=== PATIENT | female | born 1965 | race Caucasian/White ===

== ENCOUNTER 2020-01-06 07:09 | Outpatient (CLI) | payer BC, SELFPAY ==
[2020-01-07 14:22] LABS: SARS-CoV-2 RNA PCR Negative
== END 2020-01-06 07:10 | disposition home or self-care (01) ==
PROVIDERS: PCP Family Medicine
DX: Z20.828 Contact with and (suspected) exposure to other viral communicable diseases (principal)
CPT/HCPCS: 87635; C9803; U0003

== ENCOUNTER 2020-09-08 09:42 | Outpatient (CLI) | payer BC, SELFPAY | END 2020-09-08 09:43 | disposition home or self-care (01) | LOC: CHSOUTPT 09:45 | PROVIDERS: PCP Family Medicine; Visit Provider Specialist | DX: Z71.3 Dietary counseling and surveillance (principal) | CPT/HCPCS: 99199 ==

== ENCOUNTER 2021-12-13 15:12 | Outpatient (CLI) | payer BC, SELFPAY ==
--- NOTE | ~2021-12-13 | CT_ITS ---
EXAMINATION: CT abdomen pelvis w con DATE: 12/13/2021 16:13 INDICATION: Generalized abdominal pain TECHNIQUE: Computed tomography (CT) of the abdomen and pelvis was performed with 100 cc Omnipaque 350 intravenous contrast. The dose-length product was 485.46 mGy-cm. Automated exposure control and iter ative reconstruction technique were employed. COMPARISON: None. FINDINGS: Lung bases are unremarkable. No significant pleural or pericardial effusion. Heart size nor mal. Status post cholecystectomy. Fatty infiltration of the liver. The spleen, pancreas, adrenal glands an d left kidney are unremarkable. There are right renal cysts. The left kidney is unremarkable. There i s mild stranding of the pericolonic fat at the proximal sigmoid colon with small fat-containing lesio n with inflammatory halo, consistent with epiploic appendagitis. No significant vascular abnormality. No lymphadenopathy. No free air or free fluid. There is a fat-containing umbilical hernia. No bowel obstruction. There is a heterogeneously enhancing mass of the uterine fundus, consistent with a fibro id measuring approximately 4 cm. No acute osseous abnormality.. IMPRESSION: 1. Findings compatible with epiploic appendagitis. 2: Hepatic steatosis. 3: Fibroid uterus. Reviewed, dictated and finalized at location A.
[2021-12-13 15:33] LABS: Basophils Absolute Auto 0.05 K/mm3 (0.00-0.10); Basophils Percent Auto 0.9 % (0.0-1.0); Eosinophils Absolute Auto 0.21 K/mm3 (0.02-0.50); Eosinophils Percent Auto 3.7 % (1.0-6.0); Hematocrit 41.8 % (35.0-49.0); Hemoglobin 13.9 g/dL (12.0-15.0); Immature Granulocyte Absolute 0.01 K/mm3 (0.00-0.00); Immature Granulocyte Percent A 0.2 % (0.0-0.0); Lymphocytes Absolute Auto 2.17 K/mm3 (1.10-4.50); Lymphocytes Percent Auto 38.6 % (18.0-42.0); Mean Corpuscular HGB Conc 33.3 g/dL (32.0-36.0); Mean Corpuscular Hemoglobin 28.8 pg (27.0-31.0); Mean Corpuscular Volume 86.7 fL (78.0-102.0); Mean Platelet Volume 9.1 fl (9.2-11.8); Monocytes Absolute Auto 0.37 K/mm3 (0.10-0.90); Monocytes Percent Auto 6.6 % (2.0-11.0); Neutrophils Absolute Auto 2.8 K/mm3 (1.7-7.2); Platelet Count Result 307 K/mm3 (150-420); Red Blood Count 4.82 M/mm3 (4.20-5.40); Red Cell Distribution Width 12.2 % (11.6-14.4); White Blood Count 5.6 K/mm3 (4.8-10.8)
[2021-12-13 15:34] LABS: Add Urine Microscopic? NO; Appearance Urine Clear (Clear); Bilirubin Urine Negative (Negative); Blood Urine Negative (Negative); Color Urine Light Yellow (Yellow); Glucose Urine UA Negative (Negative); Ketones Urine Negative (Negative); Leukocyte Esterase Ur Negative (Negative); Nitrate Urine Negative (Negative); Protein Urine Negative (Negative); Specific Grav Ur <= 1.005 (1.010-1.020); Urobilinogen Urine 0.2 mg/dL (0.2-1.0)
[2021-12-13 15:47] LABS: Alanine Aminotransferase 20 U/L (14-59); Albumin Level 3.4 g/dL (3.4-5.0); Alkaline Phosphatase 71 U/L (46-116); Anion Gap 9 mmol/L (8-16); Aspartate Amino Transferase 12 U/L (15-37); Bilirubin,Total 0.4 mg/dL (0.00-1.00); Blood Urea Nitrogen 11 mg/dL (7-18); Calcium 9.1 mg/dL (8.5-10.1); Carbon Dioxide 28 mmol/L (21-32); Chloride 105 mmol/L (98-108); Estimated Glomerular Filt Rate > 60; Glucose 99 mg/dL (70-99); Osmolality Calculated 293 mOsm/kg (285-295); Potassium 3.9 mmol/L (3.5-5.1); Sodium 142 mmol/L (136-145); Total Protein 7.5 g/dL (6.4-8.2)
== END 2021-12-13 15:13 | disposition home or self-care (01) ==
PROVIDERS: PCP Family Medicine; Visit Provider Registered Nurse
DX: R10.84 Generalized abdominal pain (principal)
CPT/HCPCS: 36415; 74177; 80053; 81003; 85025; Q9967

== ENCOUNTER 2024-04-01 17:01 | Outpatient (RCR) | payer BC, SELFPAY ==
--- NOTE | 2024-04-01 18:02 | PTOPEVAL1 ---
Assessment and note entered by Crow Larsen Evaluation Information Assessment Status Evaluation Diagnosis TMJ S03.00XA Onset 04/01/22 Subjective Information Pt. reports that she has been having jaw pain and pain around the right ear for about 2 years. She states that she has undergone MRI without any significant findings. She states that she has attempted to sleep with a mouth guard, without relief. She states that recently she has noticed that she is biting her cheek and tongue more frequently. She states that mostly occurs during eating and it has become a daily occurrence. She reports that she does not make a conscious effort to correct until after she has bitten her tongue or cheek. She states that her goal is to eliminate biting her tongue with eating. Reported Pain Level Pain Score 0: Self Report Assessment PT Clinical Summary Pt. enters the clinic with right sided TMJ dysfunction. She presents with impaired tracking during mouth opening and closing and pain with eating. Continued skilled PT is indicated in order to decrease pain and improve jaw tracking to allow for pain relief. Plan of Care Interventions Electrical Stimulation,Hot Pack/Cold Pack,Neuro Re -education,Patient/Caregiver Educati,Therapeutic Activities,Therapeutic Exercise Other Interventions dry needlilng PT Services Indicated Yes Treatment Frequency and 1x/week x 4 visits Duration These treatments will address the objective and functional deficits as defined above. The patient will be advanced safely and appropriately in order for the patient to progress towards his/her prior level of function. Additional exercises will be introduced and as well as a comprehensive home exercise program upon discharge, if needed, ?to ensure carryover of functional gains achieved in the clinic. This treatment plan has been reviewed and agreement upon by the patient.
--- NOTE | 2024-04-01 18:02 | OPREHPOC ---
Outpatient Therapy Plan of Care This is a Multidisciplinary Plan of Care that may contain components documented by all disciplines (PT, OT, and ST.) PT Problem 1 PT Problem #1 Knowledge Deficit PT Goal 1 Goal / Goal Update Pt. will be independent with a HEP focused on TMJ tracking and stability. Target Visit 2 PT Problem 2 PT Problem #2 Impaired Range of Motion PT Goal 1 Goal / Goal Update Pt. will demonstrate improved tracking with jaw movement upon visual assessment. Target Visit 4 PT Problem 3 PT Problem #3 Pain PT Goal 1 Goal / Goal Update Pt. will report 75% reduction in episodes of biting the jaw. Target Visit 4
--- NOTE | 2024-04-24 10:05 | OPREHPOC ---
Outpatient Therapy Plan of Care This is a Multidisciplinary Plan of Care that may contain components documented by all disciplines (PT, OT, and ST.) PT Problem 1 PT Problem #1 Knowledge Deficit PT Goal 1 Goal / Goal Update Pt. will be independent with a HEP focused on TMJ tracking and stability. Target Visit 2 Progress Met PT Problem 2 PT Problem #2 Impaired Range of Motion PT Goal 1 Goal / Goal Update Pt. will demonstrate improved tracking with jaw movement upon visual assessment. 1. 80 degrees bilateral cervical rotation 2. 45 degrees bilateral cervical side bending Target Visit 8 PT Problem 3 PT Problem #3 Pain PT Goal 1 Goal / Goal Update Pt. will report 75% reduction in episodes of biting the jaw. Target Visit 4 PT Goal 2 Goal / Goal Update patient will report 90% reduction in episodes of biting the lip, tongue patient will display improved posture of the shoulder, scapulae, head/neck Target Visit 8
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
== END 2024-06-30 23:59 | disposition home or self-care (01) ==
LOC: CHSPT 17:01
PROVIDERS: Visit Provider Registered Nurse
DX: S03.00XA Dislocation of jaw, unspecified side, initial encounter (principal)
CPT/HCPCS: 97110; 97140; 97161

== ENCOUNTER 2024-07-02 07:10 | Outpatient (CLI) | payer BC, OTHER, SELFPAY ==
--- NOTE | ~2024-07-02 | CT_ITS ---
CT of the Abdomen and Pelvis: Indication: Abdominal pain Technique: 2.5 mm axial scans were obtained through the abdomen and pelvis following intravenous adm inistration of 100 cc of Omnipaque 350. Dose reduction technique was used on this scan by utilizing a utomated exposure control and iterative reconstruction technique. The dose-length product (DLP) was 3 07.61 mGy-cm. COMPARISON: 12/13/2021 Findings: Scans through the lung bases are unremarkable. The liver, spleen, pancreas, adrenals and kidneys are within normal limits. Cholecystectomy clips are present. No evidence of aortic aneurysm. No lymphadenopathy. No bowel obstruction or bowel wall thickening. Extensive stool suggests constipation.. Images through the pelvis were performed. Urinary bladder unremarkable. Enhancing fundal fibroid pres ent. No ascites. Impression: Constipation. Uterine fibroid, as above. Reviewed, dictated and finalized at location . 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 Uterine fibroid, as above.
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
--- OUTSIDE RECORDS SUMMARY | 2024-07-02 07:18 | XMS_ITS ---
Care Plan - [facility] Created on: July 02, 2024 JIMMY LARSON : 1965 Sex: Female Author Organization [facility] Address [address] [place] [address] Phone Care Team Providers Care Leather Belt Shaper Name Role Phone SARAI THOMAS, SHEA Marshall Unavailable [phone] NEGRITO THOMAS, TITA Arizmendi Primary Care Provider [phone]
--- OUTSIDE RECORDS SUMMARY | 2024-07-02 07:18 | XMS_ITS | Clinical Summary ---
Author Organization [facility] Address [address] [place] [address] Care Team Providers Care Printer Operator Name Role Phone Tre Ellis MD Primary Care Provider Allergies Active Allergy Reactions Criticality Noted Date Comments Propoxyphene Nausea and Vomiting 12/26/2018 Medications omeprazole 40 MG capsule Take 40 mg by mouth daily. 0 Active SUMAtriptan 25 MG tablet Take 25 mg by mouth 2 (two) times daily as needed for Migraine. 0 Active Cholecalciferol (VITAMIN D3) 50 MCG (2000 UT) Tab Take 1 tablet by mouth daily. Active calcium carb-cholecalcifero l 600-400 MG-UNIT Tab tablet Take 1 tablet by mouth daily. Active amitriptyline (ELAVIL) 75 MG tablet Take 1 tablet (75 mg total) by mouth nightly as needed. 4 Active vitamin D2, ergocalciferol, (DRISDOL) 1.25 mg capsule Take 1 capsule (1.25 mg total) by mouth every 7 days. 4 Active pregabalin (LYRICA) 25 MG capsule Take 1 capsule (25 mg total) by mouth 2 (two) times daily. 4 Active OZEMPIC 2 mg/dose injection (PEN) Inject 2 mg into the skin once a week. 4 Active ondansetron (ZOFRAN-ODT) 4 MG disintegrating tablet Take 1 tablet (4 mg total) by mouth every 8 (eight) hours as needed for Nausea. 12 tablet 5 Active Encounters Date Type Department Care Team Description 05/27/2024 6:42 AM CIRCULAR GANG SAW OPERATOR - 05/27/2024 11:59 PM CIRCULAR GANG SAW OPERATOR [facility] [address] [place] [address] Montez Pruitt NP Discharge Disposition: Home or Self Care (Routine Discharge) 05/27/2024 Travel 05/21/2024 6:12 PM CIRCULAR GANG SAW OPERATOR - 05/21/2024 8:22 PM CIRCULAR GANG SAW OPERATOR [facility] [address] [place] [address] Debbie Vargas, Lizz Worrell DO Abdominal Pain Discharge Disposition: Home or Self Care (Routine Discharge) 05/21/2024 Travel 04/26/2024 11:00 AM CIRCULAR GANG SAW OPERATOR - 04/26/2024 11:59 PM CIRCULAR GANG SAW OPERATOR Hospital Encounter [facility] [address] [place] [address] Yuniel Burdick PA Discharge Disposition: Home or Self Care (Routine Discharge) 04/26/2024 Travel from Last 3 Months Family History Medical History Relation Comments Breast Cancer Mother Hypertension Mother Breast Cancer Sister Relation Status Comments Mother Sister Social History Tobacco Use Types Packs/Day Years Used Date Smoking Tobacco: Former Smokeless Tobacco: Never Alcohol Use Standard Drinks/Week Comments Yes 0 (1 standard drink = 0.6 oz pur e alcohol) Comments No Sex and Gender Information Value Date Recorded Sex Assigned at Female 05/21/2024 6:36 PM CIRCULAR GANG SAW OPERATOR Legal Sex Female 9:54 PM CIRCULAR GANG SAW OPERATOR Gender Identity Not on file Sexual Orientation Not on file Last Filed Vital Signs Vital Sign Reading Time Taken Comments Blood Pressure 129/73 05/21/2024 8:20 PM CIRCULAR GANG SAW OPERATOR Pulse 72 05/21/2024 6:19 PM CIRCULAR GANG SAW OPERATOR Temperature 36.3 C (97.4 F) 05/21/2024 6:19 PM CIRCULAR GANG SAW OPERATOR Respiratory Rate 18 05/21/2024 6:19 PM CIRCULAR GANG SAW OPERATOR Oxygen Saturation 100% 05/21/2024 8:10 PM CIRCULAR GANG SAW OPERATOR Inhaled Oxygen Concentration - - Weight 68.8 kg (151 lb 9.6 oz) 05/21/2024 6:19 P M CIRCULAR GANG SAW OPERATOR Height 157.5 cm (5' 2 ) 05/21/2024 6:19 PM CIRCULAR GANG SAW OPERATOR Body Mass Index 27.73 05/21/2024 6:19 PM CIRCULAR GANG SAW OPERATOR Plan of Treatment Upcoming Encounters Date Type Department Care Team (Late st Contact Info) Description 07/10/2024 7:00 AM CIRCULAR GANG SAW OPERATOR Appointment [facility] [address] [place] [address] Montez Pruitt, RAGHAV [address] [place] [id number] Health Maintenance Due Date Last Done Comments Cervical Cancer Screening Pap Smear (Age 30 to 64) Every 3 Years 1964 Annual Physical 10/28/1967 Hepatitis C 1982 DTaP, Tdap and Td Vaccines (1 - Tdap) 10/28/1983 Cervical Cancer Screening Pap with HPV Testing (Age 30 to 64) Every 5 Years 1994 Cervical Cancer Screening with HPV 1994 Zoster Vaccines (1 of 2) 2014 COVID-19 Vaccine (2 - season) 2024 11/17/2020 Influenza Adult (#1) 2024 02/10/2021, 02/21/2019, 02/14/2017, Additional history exists Mammogram Screening 11/19/2025 11/20/2023, 04/17/2023, 11/04/2022, Additional history exists Colorectal Cancer Screening Colonoscopy (10 Years) 01/01/2029 01/01/2019 Meningococcal B Vaccine Aged Out No l onger eligible based on patient's age to complete this topic Meningococcal Vaccine Aged Out No ayden daly eligible based on patient's age to complete this topic Pneumococcal Vaccine: Pediatrics (0 to 5 Years) and At-Risk Patients (6 to 64 Years) Aged Out No longer eligible based on patient's age to complete this topic RSV Immunizations Under 20 Months Aged Out No longer eligible based on patient's age to complete this topic Procedures Procedure Name Priority Date/Time Associated Diagnosis Comments MRI BRAIN WO CON Routine 05/27/2024 7:48 AM CIRCULAR GANG SAW OPERATOR Headache CT ABD+PEL W CON STAT 05/21/2024 7:02 PM CIRCULAR GANG SAW OPERATOR OSMOLALITY, BLOOD STAT 05/21/2024 6:4 6 PM CIRCULAR GANG SAW OPERATOR BETA-HYDROXYBUTYRATE STAT 05/21/2024 6:46 PM CIRCULAR GANG SAW OPERATOR BLOOD GAS, VENOUS STAT 05/21/2024 6:4 6 PM CIRCULAR GANG SAW OPERATOR LIPASE STAT 05/21/2024 6:46 PM CIRCULAR GANG SAW OPERATOR COMPREHENSIVE METABOLIC PANEL STAT 05/21/2024 6:46 PM CIRCULAR GANG SAW OPERATOR CBC W/DIFF AUTOMATED STAT 05/21/2024 6:46 PM CIRCULAR GANG SAW OPERATOR URINE BACTERIA CULTURE STAT 6:22 PM CIRCULAR GANG SAW OPERATOR HC URINALYSIS AUTO W/MICRO STAT 05/21/2024 6:22 PM CIRCULAR GANG SAW OPERATOR CT HEAD WO CON STAT 04/26/2024 11:12 AM CIRCULAR GANG SAW OPERATOR Headache MG DIAG W SARITHA BILAT DIGI Routine 11/20/2023 9:56 AM CDT Abnormal mammogram COLONOSCOPY 01/01/2019 12:53 PM CDT from Last 3 Months or Most Recently Relevant to Health Maintenance Results * MRI BRAIN WO CON (05/27/2024 7:48 AM CIRCULAR GANG SAW OPERATOR) Anatomical Region Laterality Modality Head Magnetic Resonan ce 05/27/2024 6:34 PM CIRCULAR GANG SAW OPERATOR Impressions 05/27/2024 6:37 PM CIRCULAR GANG SAW OPERATOR IMPRESSION: 1. No definite acute intracranial abnormalities identified. 2. Few punctate supratentorial white matter abnormalities. Findings can be seen in association with migraine headaches or related to small vessel disease, but are in and of themselves nonspecific. Referred By: MONTEZ PRUITT Interpreted By: Leander Villafana MD, 05/27/2024 6:34 PM Narrative 05/27/2024 6:37 PM CIRCULAR GANG SAW OPERATOR [address] [place] [address] INDICATION: Headache. EXAMINATION: MRI brain without contrast. TECHNIQUE: Multiplanar and multisequence MRI images of the brain were obtained without contrast. COMPARISON: Head CT 04/26/2024. Brain MRI 07/22/2019 FINDINGS: No diffusion restriction identified on ADC maps to suggest acute infarct. No intracranial mass, mass effect, or midline shift. Few punctate foci of FLAIR hyperintensity seen in the hemispheric white matter, nonspecific. Ventricles and extra-axial/subarachnoid spaces are age appropriate. No extra-axial collections. Proximal portions of the major intracranial arterial flow voids are patent. No hemorrhagic foci of susceptibility seen on gradient echo images. Craniocervical junction, sellar content, pineal region are unremarkable. Mastoid air cells and paranasal sinuses are clear. Visualized orbits unremarkable. Procedure Note Leander Villafana MD - 05/27/[address] [place] [address] INDICATION: Headache. EXAMINATION: MRI brain without contrast. TECHNIQUE: Multiplanar and multisequence MRI images of the brain wereobtained without contrast. COMPARISON: Head CT 04/26/2024. Brain MRI 07/22/2019 FINDINGS: No diffusion restriction identified on ADC maps to suggest acute infarct.No intracranial mass, mass effect, or midline shift. Few punctate foci ofFLAIR hyperintensity seen in the hemispheric white matter, nonspecific.Ventricles and extra-axial/subarachnoid spaces are age appropriate. Noextra-axial collections. Proximal portions of the major intracranialarterial flow voids are patent. No hemorrhagic foci of susceptibility seenon gradient echo images. Craniocervical junction, sellar content, pinealregion are unremarkable. Mastoid air cells and paranasal sinuses areclear. Visualized orbits unremarkable. IMPRESSION: 1. No definite acute intracranial abnormalities identified. 2. Few punctate supratentorial white matter abnormalities. Findings can beseen in association with migraine headaches or related to small vesseldisease, but are in and of themselves nonspecific. Referred By: MONTEZ PRUITT Interpreted By: Leander Villafana MD, 05/27/2024 6:34 PM Montez Pruitt COMPLIANCE LEAD MRI Fin al Result * CT ABD+PEL W IV CON ONLY (05/21/2024 7:02 PM CIRCULAR GANG SAW OPERATOR) Anatomical Region Laterality Modality Abdomen Computed Tomogra phy 05/21/2024 7:28 PM CIRCULAR GANG SAW OPERATOR Impressions 05/21/2024 7:34 PM CIRCULAR GANG SAW OPERATOR IMPRESSION: 1. CT findings consistent with acute uncomplicated sigmoid diverticulitis. A follow-up colonoscopy is recommended following resolution of symptoms. 2. No CT evidence of bowel obstruction or acute appendicitis. 3. Possible 4.9 x 5.3 x 4.9 cm fundal uterine fibroid. At minimum a follow-up nonemergent pelvic ultrasound could be considered for further characterization. Alternatively, a a contrast-enhanced MRI could also be considered. Ordered By: DEBBIE VARGAS Interpreted By: Roshni South MD, 05/21/2024 7:28 PM Narrative 05/21/2024 7:34 PM CIRCULAR GANG SAW OPERATOR [address] [place] [address] PROCEDURE: CT ABD+PEL W CON HISTORY: Diffuse abdominal pain. TECHNIQUE: Helical CT of the abdomen and pelvis was performed using non-ionic intravenous contrast ((Isovue-370, 90 mL). No oral contrast was administered. A dose lowering technique was used for this procedure, which may include, but is not limited to, dose reduction technique, automated exposure control, the use of iterative reconstruction, and ALARA (As Low As Reasonably Achievable) / Image Gently techniques.. COMPARISON: CT abdomen pelvis with contrast, 05/10/[address] ABDOMEN/PELVIS: Lower thorax: There is subsegmental atelectasis in the lower lobes. The heart is normal in size. Liver: The liver is normal in size. There is no intrahepatic mass. Biliary tree: The patient is post cholecystectomy. There is no biliary ductal dilatation. Spleen: The spleen is normal in size. Pancreas: The pancreas is normal in size and enhances homogenously. Adrenal glands: The adrenal glands are normal in size and shape. Kidneys: There are bilateral symmetric nephrograms without hydronephrosis. There is a 11 mm medial superior pole right renal cyst. Lymph nodes: Abdomen: There is no abdominal adenopathy. Pelvis: There is no pelvic adenopathy. Vasculature: There is no abdominal aortic aneurysm. Atherosclerotic calcification is seen. Peritoneum/mesentery/omentum: There is no free fluid or free air. GI tract: There is no bowel obstruction. The appendix normal. There is colonic wall thickening involving the sigmoid colon with associated pericolonic fascia findings running several diverticula. Findings compatible with acute uncomplicated diverticulitis. Pelvic urogenital structures:The bladder is grossly unremarkable. There is a 4.9 x 5.3 x 4.9 cm heterogeneously enhancing fundal mass, likely uterine fibroid. There is no adnexal mass. Body wall: There are degenerative changes in the spine. No aggressive osseous lesions identified. Caba: (S/I) = series number / image number Procedure Note Roshni South MD - 05/21/2024 [place] [id number] [place] [address] PROCEDURE: CT ABD+PEL W CON HISTORY: Diffuse abdominal pain. TECHNIQUE: Helical CT of the abdomen and pelvis was performed usingnon-ionic intravenous contrast ((Isovue-370, 90 mL). No oral contrast wasadministered. A dose lowering technique was used for this procedure, which may include,but is not limited to, dose reduction technique, automated exposurecontrol, the use of iterative reconstruction, and ALARA (As Low AsReasonably Achievable) / Image Gently techniques.. COMPARISON: CT abdomen pelvis with contrast, 05/10/[address] ABDOMEN/PELVIS: Lower thorax: There is subsegmental atelectasis in the lower lobes. Theheart is normal in size. Liver: The liver is normal in size. There is no intrahepatic mass. Biliary tree: The patient is post cholecystectomy. There is no biliaryductal dilatation. Spleen: The spleen is normal in size. Pancreas: The pancreas is normal in size and enhances homogenously. Adrenal glands: The adrenal glands are normal in size and shape. Kidneys: There are bilateral symmetric nephrograms withouthydronephrosis. There is a 11 mm medial superior pole right renal cyst. Lymph nodes: Abdomen: There is no abdominal adenopathy. Pelvis: There is no pelvic adenopathy. Vasculature: There is no abdominal aortic aneurysm. Atheroscleroticcalcification is seen. Peritoneum/mesentery/omentum: There is no free fluid or free air. GI tract: There is no bowel obstruction. The appendix normal. There iscolonic wall thickening involving the sigmoid colon with associatedpericolonic fascia findings running several diverticula. Findingscompatible with acute uncomplicated diverticulitis. Pelvic urogenital structures:The bladder is grossly unremarkable. Thereis a 4.9 x 5.3 x 4.9 cm heterogeneously enhancing fundal mass, likelyuterine fibroid. There is no adnexal mass. Body wall: There are degenerative changes in the spine. No aggressiveosseous lesions identified. Caba: (S/I) = series number / image number IMPRESSION: 1. CT findings consistent with acute uncomplicated sigmoiddiverticulitis. A follow-up colonoscopy is recommended followingresolution of symptoms. 2. No CT evidence of bowel obstruction or acute appendicitis. 3. Possible 4.9 x 5.3 x 4.9 cm fundal uterine fibroid. At minimum afollow-up nonemergent pelvic ultrasound could be considered for furthercharacterization. Alternatively, a a contrast-enhanced MRI could also beconsidered. Ordered By: DEBBIE VARGAS Interpreted By: Roshni South MD, 05/21/2024 7:28 PM Debbie Vargas DO CT Final Res ult * (ABNORMAL) BETA-HYDROXYBUTYRATE (05/21/2024 6:46 PM CIRCULAR GANG SAW OPERATOR) BETA-HYDROXYBU TYRATE 0.7(H) 0.0 - 0.3 MMOL/L 05/21/2024 6:56 PM CIRCULAR GANG SAW OPERATOR [facility] 05/21/2024 6:46 PM CIRCULAR GANG SAW OPERATOR Debbie Vargas DO LABORATORY Final Res ult [facility] [address] [place] [address], * (ABNORMAL) Blood gas, venous (05/21/2024 6:46 PM CIRCULAR GANG SAW OPERATOR) PH VENOUS 7.44(H) 7.32 - 7.43 05/21/2024 6:57 PM CIRCULAR GANG SAW OPERATOR [facility] PCO2 VENOUS 38.0 MMHG 05/21/2024 6:57 PM [facility] Comment:NO REFERENCE RANGE H BEEN ESTABLISHED PO2 VENOUS 32.0 MM HG 05/21/2024 6:57 PM [facility] Comment:NO REFERENCE RANGE H BEEN ESTABLISHED TOTAL CO2 VENOUS 27.0(H) 22.0 - 26.0 MMOL/L 05/21/2024 6:57 PM [facility] BASE EXCESS VENOUS 1.7 MMOL/L 05/21/2024 6:57 PM [facility] Comment:NO REFERENCE RANGE H BEEN ESTABLISHED O2 SAT VENOUS 65 % 05/21/2024 6:57 PM [facility] Comment:NO REFERENCE RANGE H BEEN ESTABLISHED BICARB VENOUS 25.8 22.0 - 29.0 MMOL/L 05/21/2024 6:57 PM CIRCULAR GANG SAW OPERATOR [facility] O2 ADMIN VENOUS ROOM AIR 6:46 PM [facility] 05/21/2024 6:46 PM CIRCULAR GANG SAW OPERATOR us Debbie Vargas DO LABORATORY Final Res ult [facility] [address] [place] [address], * (ABNORMAL) COMPREHENSIVE METABOLIC PANEL (05/21/2024 6:46 PM CIRCULAR GANG SAW OPERATOR) SODIUM S/P/B 140 136 - 145 MMOL/L 05/21/2024 7:08 PM CIRCULAR GANG SAW OPERATOR [facility] POTASSIUM S/P/B 3.6 3.5 - 5.1 MMOL/L 05/21/2024 7:08 PM CIRCULAR GANG SAW OPERATOR [facility] CHLORIDE S/P/B 102 98 - 107 MMOL/L 05/21/2024 7:08 PM [facility] CO2 26.3 21.0 - 32.0 MMOL/L 05/21/2024 7:08 PM [facility] GLUCOSE 93 70 - 99 MG/DL 05/21/2024 7:08 PM [facility] Comment: FASTING GLUCOSE 100 TO 125 MG/DL IS CONSISTENT WITH IMPAIRED FASTING GLUCOSE. FASTING GLUCOSE >125 MG/DL IS CONSISTENT WITH DIABETES. RANDOM GLUCOSE >200 MG/DL WITH HYPERGLYCEMIC SYMPTOMS IS CONSISTENT WITH DIABETES. PER ADA GUIDELINES BUN 10 6 - 24 MG/DL 05/21/2024 7:08 PM [facility] CREATININE S/P/B 0.82 0.55 - 1.02 MG/DL 05/21/2024 7:08 PM [facility] CALCIUM S/P/B 8.8 8.4 - 10.5 MG/DL 05/21/2024 7:08 PM [facility] BILIRUBIN TOTAL S/P/B 0.3 0.2 - 1.0 MG/DL 05/21/2024 7:08 PM [facility] Comment: THIS ASSAY IS NOT RECOMMENDED FOR PATIENTS UNDERGOING TREATMENT WITH ELTROMBOPAG DUE TO THE POTENTIAL FOR FALSELY ELEVATED RESULTS. ALKALINE PHOSPHATASE S/P/B 63 46 - 118 U/L 05/21/2024 7:08 PM [facility] AST 9(L) 15 - 37 U/L 05/21/2024 7:08 PM [facility] ALT 21 14 - 59 U/L 05/21/2024 7:08 PM [facility] TOTAL PROTEIN S/P/B 7.1 6.4 - 8.2 G/DL 05/21/2024 7:08 PM [facility] ALBUMIN S/P/B 3.0(L) 3.4 - 5.0 G/DL 05/21/2024 7:08 PM [facility] ANION GAP 11.7 5.0 - 15.0 MMOL/L 05/21/2024 7:08 PM [facility] OSMOLALITY (CALC) 289 MOSM/KG 025 7:08 PM CIRCULAR GANG SAW OPERATOR [facility] Comment:REFERENCE RANGE NOT ESTABLISHED GFR ESTIMATE 82(L) >89 ML/MIN/1. 73 M2 05/21/2024 7:08 PM CIRCULAR GANG SAW OPERATOR [facility] GFR NOTES GFR REFERENCE S: 05/21/2024 7:08 PM CIRCULAR GANG SAW OPERATOR [facility] Comment: THE ESTIMATED GFR IS CALCULATED USING THE 2020 CKD-EPI EQUATION. THE FOLLOWING CATEGORIES FOR GRADING RENAL FUNCTION ARE RECOMMENDED BY THE INTERNATIONAL SOCIETY OF NEPHROLOGY (KDIGO 2012 CLINICAL PRACTICE GUIDELINE). G1,NORMAL OR HIGH: >89 ml/min/1.73 m2 G2,MILDLY DECREASED: 60-89 ml/min/1.73 m2 G3A,MILDLY TO MODERATELY DECREASED: 45-59 ml/min/1.73 m2 G3B,MODERATELY TO SEVERELY DECREASED: 30-44 ml/min/1.73 m2 G4,SEVERELY DECREASED: 15-29 ml/min/1.73 m2 G5,KIDNEY FAILURE: <15 ml/min/1.73 m2 05/21/2024 6:46 PM CIRCULAR GANG SAW OPERATOR us Debbie Vargas DO LABORATORY Final Res ult [facility] [address] [place] [address], * (ABNORMAL) CBC W/DIFF AUTOMATED (05/21/2024 6:46 PM CIRCULAR GANG SAW OPERATOR) WBC 7.25 4.00 - 10.80 x10'3/uL 05/21/2024 6:51 PM CIRCULAR GANG SAW OPERATOR [facility] RBC 4.18 4.10 - 5.40 x10'6/uL 05/21/2024 6:51 PM CIRCULAR GANG SAW OPERATOR [facility] HGB 11.9(L) 12.0 - 16.0 G/DL 05/21/2024 6:51 PM CIRCULAR GANG SAW OPERATOR [facility] HCT 35.7(L) 36.0 - 47.0 % 05/21/2024 6:51 PM CIRCULAR GANG SAW OPERATOR [facility] MCV 85.4 78.0 - 100.0 FL 05/21/2024 6:51 PM CIRCULAR GANG SAW OPERATOR [facility] MCH 28.5 27.0 - 31.0 PG 05/21/2024 6:51 PM CIRCULAR GANG SAW OPERATOR [facility] MCHC 33.3 33.0 - 36.0 G/DL 05/21/2024 6:51 PM [facility] RDW 13.0 11.5 - 14.5 % 05/21/2024 6:51 PM [facility] PLT 334 150 - 350 x10'3/uL 05/21/2024 6:51 PM [facility] MPV 9.1 7.4 - 10.4 FL 05/21/2024 6:51 PM [facility] CBC COMMENT NORMAL REFERENCE RANGE NOT ESTABLISHED FOR THE PROPORTIONAL LEUKOCYTE DIFFERENTIAL. 05/21/2024 6:51 PM CIRCULAR GANG SAW OPERATOR [facility] NEUTROPHILS % 57.1 % 05/21/2024 6:51 PM [facility] LYMPHOCYTES % 35.0 % 05/21/2024 6:51 PM [facility] MONOCYTES % 5.9 % 05/21/2024 6:51 PM [facility] EOSINOPHILS % 1.2 % 05/21/2024 6:51 PM [facility] BASOPHILS % 0.7 % 05/21/2024 6:51 PM [facility] IMMATURE GRANS % 0.1 % 05/21/19 6:51 PM CIRCULAR GANG SAW OPERATOR [facility] NRBC % 0.0 % 05/21/2024 6:51 PM [facility] ABS. NEUTROPHILS 4.13 1.60 - 8.30 x10'3/uL 05/21/2024 6:51 PM CIRCULAR GANG SAW OPERATOR [facility] ABS. LYMPHOCYTES 2.54 0.80 - 4.70 x10'3/uL 05/21/2024 6:51 PM [facility] ABS. MONOCYTES 0.43 0.00 - 1.50 x10'3/uL 05/21/2024 6:51 PM CIRCULAR GANG SAW OPERATOR [facility] ABS. EOSINOPHILS 0.09 0.00 - 0.40 x10'3/uL 05/21/2024 6:51 PM CIRCULAR GANG SAW OPERATOR [facility] ABS. BASOPHILS 0.05 0.00 - 0.20 x10'3/uL 05/21/2024 6:51 PM CIRCULAR GANG SAW OPERATOR [facility] ABS. IMMATURE GRANULOCYTES 0.01 0.00 - 0.03 x10'3/uL 05/21/2024 6:51 PM CIRCULAR GANG SAW OPERATOR [facility] ABS. NUCLEATED RBC'S 0.00 0.00 - 0.01 x10'3/uL 05/21/2024 6:51 PM CIRCULAR GANG SAW OPERATOR [facility] 05/21/2024 6:46 PM CIRCULAR GANG SAW OPERATOR Debbie Vargas LABORATORY Final Res ult Performing Organization Address [facility] [address]/ZIP Co de Phone Number [facility] [address] [place] [address], * LIPASE (05/21/2024 6:46 PM CIRCULAR GANG SAW OPERATOR) LIPASE 68 16 - 77 UNITS/L 05/21/2024 7:08 PM CIRCULAR GANG SAW OPERATOR [facility] 05/21/2024 6:46 PM CIRCULAR GANG SAW OPERATOR [facility] Final Res ult Performing Organization Address [facility] [address]/[facility] [place] [address], [place] [phone] * OSMOLALITY, BLOOD (05/21/2024 6:46 PM CIRCULAR GANG SAW OPERATOR) OSMOLALITY (S/P/B) 285 275 - 295 MOSM/KG 05/22/2024 1:11 PM CIRCULAR GANG SAW OPERATOR [facility] 05/21/2024 6:46 PM CIRCULAR GANG SAW OPERATOR [facility] LAB[facility]ATORY Final Res ult Performing Organization Address City/[facility] [address]/ZIP Co de Phone Number [facility] [address] [place] [address], [phone] * (ABNORMAL) URINALYSIS (05/21/2024 6:22 PM CIRCULAR GANG SAW OPERATOR) COLOR (U) YELLOW 05/21/2024 7:01 PM [facility] TRANSPARENCY CLEAR 05/21/2024 7:01 PM [facility] SPECIFIC GRAVITY (U) 1.015 1.000 - 1.025 05/21/2024 7:01 PM [facility] U PH 7.0 5.0 - 8.0 05/21/2024 7:01 PM [facility] LEUKOCYTES (U) 3+(A) NEGATIVE 05/21/2024 7:01 PM [facility] NITRITES NEGATIVE NEGATIVE 05/21/2024 7:01 PM [facility] PROTEIN RANDOM (U) NEGATIVE NEGATIVE 05/21/2024 7:01 PM [facility] GLUCOSE (U) NEGATIVE NEGATIVE 05/21/2024 7:01 PM [facility] KETONES MG/DL (U) NEGATIVE NEGATIVE 05/21/2024 7:01 PM [facility] UROBILINOGEN 0.2 <1.0 EU/DL 05/21/2024 7:01 PM [facility] BILIRUBIN (U) NEGATIVE NEGATIVE 05/21/2024 7:01 PM [facility] [facility] BLOOD (U) TRACE(A) NEGATIVE 05/21/2024 7:01 PM [facility] WBC/HPF 5-10(A) 0 - 5 /HPF 05/21/2024 7:01 PM [facility] RBC/HPF 0-5 0 - 5 /HPF 05/21/2024 7:01 PM [facility] EPI/LPF FEW /LPF 05/21/2024 7:01 PM [facility] BACTERIA (U) 1+ /HPF 05/21/2024 7:01 PM [facility] URINE SPECIMEN OBTAINED BY CLEAN CATCH PROCEDURE / Unknown 05/21/2024 6:22 PM CIRCULAR GANG SAW OPERATOR Debbie Vargas DO URINE ORDERABLES Final Re sult Performing Organization Address City/[facility] [address]/[facility] Co de Phone Number [facility] [address] [place] [id number], [place] [phone] * CULTURE URINE (05/21/2024 6:22 PM CIRCULAR GANG SAW OPERATOR) SPEC DESCRIPTION URINE CLEAN CATCH 05/21/2024 6:36 PM CIRCULAR GANG SAW OPERATOR [facility] SPECIAL REQUESTS NO SPECIAL REQUEST 05/21/2024 6:36 PM CIRCULAR GANG SAW OPERATOR [facility] CULTURE RESULT FEW CONTAMINANTS 05/08 10:01 AM CIRCULAR GANG SAW OPERATOR [facility] URINE SPECIMEN OBTAINED BY CLEAN CATCH PROCEDURE / Unknown 05/21/2024 6:22 PM CIRCULAR GANG SAW OPERATOR 05/21/2024 6:38 PM CIRCULAR GANG SAW OPERATOR Debbie Vargas DO MICROBIOLOGY - GENERAL OR DERABLES Final Result Performing Organization Address [facility] [address]/[facility] Co de Phone Number [facility] [address] [place] [address], [place] [phone] [facility] [address] [place] [id number], [place] [phone] * CT HEAD WO CON (04/26/2024 11:12 AM CIRCULAR GANG SAW OPERATOR) Anatomical Region Laterality Modality Head Computed Tomogra phy 04/26/2024 11:1 7 AM CIRCULAR GANG SAW OPERATOR Impressions 04/26/2024 11:20 AM CIRCULAR GANG SAW OPERATOR IMPRESSION: No acute intracranial process identified. Ordered By: YUNIEL BURDICK Interpreted By: Alexander Fritz MD, 04/26/2024 11:17 AM Narrative 04/26/2024 11:20 AM CIRCULAR GANG SAW OPERATOR [address] [place] [address] Examination: CT of the head without contrast. Exam time: 1117 hours. Clinical history: Headache for two weeks. Nausea. Dizziness. Comparison: MRI of the brain, 07/22/2019. Technique: Noncontrast axial scans from skull base to vertex. Sagittal and coronal reconstructions were performed from the data set. A dose lowering technique was used for this procedure, which may include, but is not limited to, dose reduction techniques, automated exposure control, the use of iterative reconstruction and ALARA/Image Gently techniques. Findings: The ventricles are normal in size and configuration and unchanged. No shift of midline or mass effect is noted. No areas of abnormal x-ray attenuation are identified. In particular, there is no mass, hemorrhage or sign of acute stroke. No extracerebral fluid collections. The mastoid air cells and visualized paranasal sinuses appear clear. Procedure Note Alexander Fritz MD - 04/26/[address] [place] [address] Examination: CT of the head without contrast. Exam time: 1117 hours. Clinical history: Headache for two weeks. Nausea. Dizziness. Comparison: MRI of the brain, 07/22/2019. Technique: Noncontrast axial scans from skull base to vertex. Sagittal andcoronal reconstructions were performed from the data set. A dose loweringtechnique was used for this procedure, which may include, but is notlimited to, dose reduction techniques, automated exposure control, the useof iterative reconstruction and ALARA/Image Gently techniques. Findings: The ventricles are normal in size and configuration andunchanged. No shift of midline or mass effect is noted. No areas ofabnormal x-ray attenuation are identified. In particular, there is nomass, hemorrhage or sign of acute stroke. No extracerebral fluidcollections. The mastoid air cells and visualized paranasal sinuses appearclear. IMPRESSION: No acute intracranial process identified. Ordered By: YUNIEL BURDICK Interpreted By: Alexander Fritz MD, 04/26/2024 11:17 AM us Yuniel POLLARD CT Final Result * MG DIAG W SARITHA BILAT DIGI (11/20/2023 9:56 AM CDT) Anatomical Region Laterality Modality Breast Bilateral Mammography, Rad iographic Imaging 11/20/2023 10:0 3 AM CDT Impressions 11/20/2023 10:09 AM CDT IMPRESSION: No suspicious change since the previous exams. See text. Routine follow-up in one year would now seem adequate. Recommendation: 1: Routine screening mammogram Bilateral in 1 Year Return for Routine Follow-Up: Yes Assessment: ACR BI-RADS Category 2 - Benign. Ordered By: MONTEZ PRUITT Interpreted By: Alexander Fritz MD, 11/20/2023 10:03 AM Narrative 11/20/2023 10:09 AM CDT Examination: Bilateral digital diagnostic mammogram with CAD. Clinical history: Follow-up of probably benign left breast calcifications. Routine screening on the right. Prior augmentation. Comparison: 04/17/2023, 11/04/2022, 2022, 10/26/2021, 07/16/2020, 06/28/2019. Technique:Bilateral digital mammograms including spot magnification imaging on the left . The exam was interpreted with the use of a computer-aided detection (CAD) system. Additional 3-D Tomosynthesis images were acquired. Tissue density: The breast tissue contains scattered fibroglandular densities. Findings: There has been no suspicious change. The breasts again demonstrate mixed fat and fibroglandular tissue. Bilateral subpectoral implants remain in place with stable configuration. Metallic biopsy marker and benign-appearing intramammary lymph nodes noted on the right. The right breast is otherwise unremarkable. On the left, the previously identified and surveilled calcifications near the 11:30 position projecting approximately 4 cm deep to the nipple are redemonstrated. They span an area of approximately 2 mm maximally, stable. Over time, the calcifications have become increasingly dense and have now coalesced nearly into a single rounded form. This reflects benign evolution. No suspicious mass, microcalcification or area of architectural distortion can be identified. Based on these findings, routine mammographic follow-up in one year would now seem adequate. These findings were discussed with the patient. 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
--- OUTSIDE RECORDS SUMMARY | 2024-07-02 07:18 | XMS_ITS | Clinical Summary ---
Author Organization [facility] Address [address] [place] [address] Phone Care Team Providers Care Can Piler Name Role Phone LIBERTAD THOMAS, SHEA Marshall Unavailable [phone] NEGRITO THOMAS, TITA Arizmendi Primary Care Provider [phone] Reason for Visit and Chief Complaint The Chief Complaint is: WWE and no c/o Problems Includes: Problems addressed during this encounter and other active Problems All Visits Onset Date Resolved Date Provider Condition S tatus Urethral Urethrocele 06/05/2018 SHEA DOMINGUEZ MD Active Last Documented On 06/05/2018 5:49PM ; [facility] Note: Unchanged - just with pt cough. Pap Smear (ASC-US) 07/31/2012 SHEA REGALADO MD Active Last Documented On 3 8:27AM ; [facility] CERVICAL (HPV) DNA POS 06/04/2012 SHEA Suero MD Active Last Documented On 3 9:02AM ; [facility] Plan of Treatment - Follow-up visit 1 year or as needed - Last Documented On 10/03/2023 8:51AM ; [facility] She will let us know if she has other problems in the meantime. - Last Documented On 10/03/2023 8:51AM ; [facility] Pending Tests Order Diagnosis Results Due Ordering P rovider Lab Pap with HPV 10/05/23 SHEA BUNDY MD Last Documented On 4 8:55AM ; [facility] Instructions to patient Instructions for patient : B reast Self Exam discussed Last Documented On 4 8:33AM ; [facility] Education and Decision Aids were provided during visit for: STD screening offered and de clined Last Documented On 4 8:33AM ; [facility] Bone Mineral Density Screeni ng guidelines reviewed : BMD next year at 59 Last Documented On 4 8:40AM ; [facility] Patient Education: Daily clayton cium and vitamin D Last Documented On 4 8:33AM ; [facility] Patient Education: weight be aring exercise Last Documented On 4 8:33AM ; [facility] Colonoscopy screening guidel ashwini discussed Last Documented On 4 8:33AM ; [facility] Assessments Includes: Assessments from this encounter Findings - Fibrocystic disease of breast - Last Documented On 10/03/2023 8:51AM ; [facility] - NORMAL FEMALE EXAM - Last Documented On 10/03/2023 8:51AM ; [facility] - Screening Malig. Neoplasm Rectum - Last Documented On 10/03/2023 8:51AM ; [facility] Instructions Includes: Instructions from this encounter Instructions to patient Instructions for patient : B reast Self Exam discussed Last Documented On 4 8:33AM ; [facility] Education and Decision Aids were provided during visit for: STD screening offered and de clined Last Documented On 4 8:33AM ; [facility] Bone Mineral Density Screeni ng guidelines reviewed : BMD next year at 59 Last Documented On 4 8:40AM ; [facility] Patient Education: Daily clayton cium and vitamin D Last Documented On 4 8:33AM ; [facility] Patient Education: weight be aring exercise Last Documented On 4 8:33AM ; [facility] Colonoscopy screening guidel ashwini discussed Last Documented On 4 8:33AM ; [facility] Medical Equipment - Implanted Devices Includes: Current Devices No Medical Equipment Recorded Medications Includes: Medications discussed during this encounter and other current Medications Current Medications (continue as prescribed) Advanced Probiotic Oral Capsule 09/30/2022 Provider: Diagnosis: Last Documented On 09/30/2022 8:15AM By Conner GILBERT ; [facility] Osteo Bi-Flex Adv Joint Shield Oral Tablet 09/30/2022 Provider: Diagnosis: Last Documented On 09/30/2022 8:15AM By Conner GILBERT ; [facility] Amitriptyline HCl 75 MG Oral Tablet 09/02/2022 Provi lorena: MONTEZ PRUITT RN Diagnosis: Last Documented On 09/30/2022 8:14AM By Conner Andrew Carlos ; [facility] Ozempic (0.25 or 0.5 MG/DOSE ) 2 MG/1.5ML Subcutaneous Solution Pen-injector 07/29/2022 Provider: YOJAAN PRUITT RN Diagnosis: Last Documented On 09/30/2022 8:14AM By Conner Andrew Carlos ; [facility] Dicyclomine HCl 10 MG Oral Capsule 05/20/2022 Provid er: MONTEZ PRUITT RN Diagnosis: Last Documented On 09/30/2022 8:14AM By Conner Andrew Carlos ; [facility] Ibuprofen 800 MG Oral Tablet 12/14/2021 Provider: MONTEZ PRUITT RN Diagnosis: Last Documented On 09/30/2022 8:14AM By Conner GILBERT ; [facility] Omeprazole 20 MG Oral Tablet Delayed Release 0 Provider: Diagnosis: Last Documented On 0 4:13PM By LOREN ALFONSO Carlos ; [facility] Medications Administered Includes: Administered Medications from this encounter No Administered Medications Recorded Vital Signs Includes: Vital Signs from this encounter Vital Name 10/03/2023 08:10A Blood Pressure Sitting (mmHg) 136/84 Temp-Oral (F) 98.3 Height (in) 63.25 Weight (lb) 152 Body Mass Index 26.7 Body Surface Area 1.7 Last Documented: On 10/03/2023 8:18AM ; [facility] Results Includes: Results discussed during this encounter No Results Recorded For Specified Dates History of Present Illness Includes: History of Present Illness from this encounter IRAM LARSON is a 57 year old female. - Allergy list reviewed - Medication list reviewed Social History Description Last Updated Smoking status : Never smoker 07/19/2019 Last Documented On 4 8:06AM ; [facility] Not using drugs 07/14/2017 Last Documented On 4 8:06AM ; [facility] Exercising regularly 06/10/2016 Last Documented On 4 8:06AM ; [facility] Marital history 06/10/2016 Last Documented On 4 8:06AM ; [facility] Sexually active with 1 partners in the l ast year 06/10/2016 Last Documented On 4 8:06AM ; [facility] Social history unchanged 04/02/2013 Last Documented On 4 8:06AM ; [facility] Alcohol use Occasionally 03/07/2012 Last Documented On 4 8:06AM ; [facility] Sexually active 03/07/2012 Last Documented On 4 8:06AM ; [facility] Procedures and Surgical History Includes: Procedures from this encounter Procedures Code Diagnosis Performing Provider Service Location Service Date FIT TEST-SCREENING FOR FECAL OCCULT BLOOD (CLIA WAIVED) 57571 Encounter for screening for malignant neoplasm of colon SHEA MAURER MD [facility] 10/03/2023 Last Documented On 4 10:20AM ; [facility] OBTAINING A PAP SMEAR (DISTINCT PROCEDURAL SERVICE DIFFERENT SITE) Q0091 Encounter for screening for malignant neoplasm of cervix SHEA MAURER MD [facility] 10/03/2023 Last Documented On 4 10:19AM ; [facility] use of tobacco assessment performed 1000F Last Documented On 4 8:07AM ; [facility] Clinical summary provided to patient Last Documented On 4 8:33AM ; [facility] cervical Pap smear 96663 Last Documented On 4 8:33AM ; [facility] history of cervical Pap smear 09/30/2022 Normal 8 8150 Last Documented On 4 8:07AM ; [facility] patient recently had a dexa scan never Last Documented On 4 8:20AM ; [facility] FIT Test-Fecal Occult negative 90835 Last Documented On 4 8:33AM ; [facility] Surgical History Last Updated Surgical / procedural histor y Breast augmentation 2005; right breast biopsy October 2012 -- [facility]-- benign; EMB 06/14/19 09/30/2022 Last Documented On 4 8:06AM ; [facility] History of tubal ligation 1998 Last Documented On 4 8:06AM ; [facility] History of Loop electrode ex cision of cervix (LEEP) 07/09/12. DEISY-1 WITH HPV EFFECT 12/03/2012 Last Documented On 4 8:06AM ; [facility] History of cholecystectomy 03/07/2012 Last Documented On 4 8:06AM ; [facility] Medical History Includes: Medical History addressed during this encounter Description Last Updated History of screening mammogr am was performed 2022 with f/u in 6 months than f/u again in 6 months- due in 10/2023 [facility] 10/03/2023 Last Documented On 4 8:51AM ; [facility] Last pap smear date 09/30/2022 10/03/2023 Last Documented On 4 8:51AM ; [facility] Previous colposcopy 09/28/2020 ; 08/21/18; 06/04/12 10/03/2023 Last Documented On 4 8:51AM ; [facility] History of diagnostic fibero ptic colonoscopy 01/09/2020 [facility] [place] 5 years 10/03/2023 Last Documented On 4 8:51AM ; [facility] Last mammogram date: 10/26/2021 WNL per p t at [facility] 09/30/2022 Last Documented On 4 8:06AM ; [facility] Primary Care Provider: Montez Beebe works under Dr. Ellis 09/30/2022 Last Documented On 4 8:06AM ; [facility] Status post tubal ligation 1998 with c/s TK 09/24/2021 Last Documented On 4 8:06AM ; [facility] Diabetes managed by oral medication dx i n 201908/11/2020 Last Documented On 4 8:06AM ; [facility] A colonoscopy was performed 01/09/2008/11 Last Documented On 4 8:06AM ; [facility] LMP: 01/22/2019 07/19/2019 Last Documented On 4 8:06AM ; [facility] Recent change in medical his tory Started from Yuniel Meza NP (at [facility]) Lexapro 10 mg started in Feb 2013 for anxiety and moodiness. Feels much better since taking it. She quit in summer and doesn't see a difference without it 07/14/2017 Last Documented On 4 8:06AM ; [facility] Osteoarthritis in her low back Dx'd October 2012 05/29/2015 Last Documented On 4 8:06AM ; [facility] Result: normal 05/29/2015 Last Documented On 4 8:06AM ; [facility] Result: normal 05/29/2015 Last Documented On 4 8:06AM ; [facility] Previous history of abnormal Pap smear LGSIL on 05/28/2012 ~06/04/2012 colp/bx --- DEISY I 'at least' ~07/09/2012 LEEP cone with DEISY I only and clear margins ~12/03/2012 ASCUS but with neg HR HPV DNA ~04/02/2013 LGSIL pap ~10/01/2013 normal pap 05/16/2014 Last Documented On 4 8:06AM ; [facility] Sexually active 1 PARTNER 05/16/2014 Last Documented On 4 8:06AM ; [facility] History of Pap smear done 04/02/2013 Last Documented On 4 8:06AM ; [facility] History of anxiety disorder NOS 04/02/20 13 Last Documented On 4 8:06AM ; [facility] History of depression 04/02/2013 Last Documented On 4 8:06AM ; [facility] section at [facility] with Dr Maurer back in 1990 with the cord around the neck. Repeat section in 1998 after failed with tubal ligation aslo at [facility] with TK 03/07/2012 Last Documented On 4 8:06AM ; [facility] Elective breast augmentation surgery was done at [facility] with Dr Lundy in about 200503/07/2012 Last Documented On 4 8:06AM ; [facility] 2 03/07/2012 Last Documented On 4 8:06AM ; [facility] Para 2 03/07/2012 Last Documented On 4 8:06AM ; [facility] Family History Includes: Family History addressed during this encounter Description Last Updated Fraternal history of cancer lung cancer and copd- heavy smoker 10/03/2023 Last Documented On 4 8:51AM ; [facility] Daughter's history of asthma brother and daughter 10/03/2023 Last Documented On 4 8:51AM ; [facility] Family history of hepatic disorders pt h as fatty liver 10/03/2023 Last Documented On 4 8:51AM ; [facility] Fraternal history of asthma 10/03/2023 Last Documented On 4 8:51AM ; [facility] Fraternal history of diabetes mellitus 0 10/03/2023 Last Documented On 4 8:51AM ; [facility] Fraternal history of heart disease 10/02 Last Documented On 4 8:51AM ; [facility] Maternal history of breast cancer 2023 Last Documented On 4 8:51AM ; [facility] Maternal history of depression mom 10/02 Last Documented On 4 8:51AM ; [facility] Maternal history of stroke syndrome mom had a couple of strokes 10/03/2023 Last Documented On 4 8:51AM ; [facility] Sororal history of breast cancer mom and sister 10/03/2023 Last Documented On 4 8:51AM ; [facility] Sororal history of diabetes mellitus Last Documented On 4 8:51AM ; [facility] mom Dx lung cancer at 75 the n a breast ca at 80 (mets?) ( 08/2016 at 82) 07/17/2018 Last Documented On 4 8:06AM ; [facility] Fraternal history of family history of h eart disease BROTHERS 06/05/2018 Last Documented On 4 8:06AM ; [facility] Fraternal history of pure hypercholester olemia brothers 06/05/2018 Last Documented On 4 8:06AM ; [facility] Maternal history of family history of he art disease MOM 06/05/2018 Last Documented On 4 8:06AM ; [facility] Maternal history of pure hypercholestero lemia Mom 06/05/2018 Last Documented On 4 8:06AM ; [facility] Fraternal history of hypertension BROTHE R 07/14/2017 Last Documented On 4 8:06AM ; [facility] Maternal history of diabetes mellitus MOM, brothers, sisters, grandparents, uncles 07/14/2017 Last Documented On 4 8:06AM ; [facility] Maternal history of hypertension MOM 01/2018 Last Documented On 4 8:06AM ; [facility] Maternal history of malignant female rob ast neoplasm mother 07/14/2017 Last Documented On 4 8:06AM ; [facility] Sororal history of malignant female breast neoplasm Sister, dying at age 50 05/29/2015 Last Documented On 4 8:06AM ; [facility] Family history of diabetes m ellitus MOM ~BROTHERS ~SISTERS ~GRANDPARENTS ~UNCLES 02/02/2012 Last Documented On 4 8:06AM ; [facility] Review of Systems Includes: Review of Systems from this encounter Gastrointestinal: No nausea, no vomiting, and no hematochezia. Genitourinary: No change in urinary frequency and no feelings of urinary urgency. No urinary loss of control and no incontinence. No dysuria, no stress incontinence, does not feel like bladder is falling out, no vaginal itching or burning, and no vaginal pain during intercourse. No vaginal dryness and no unexplained vaginal bleeding. Musculoskeletal: No arthralgias and no localized joint swelling. Psychological: No anxiety, no depression, and no sleep disturbances. Mental Status Includes: Mental Status from this encounter Description No anxiety Functional Status Includes: Functional Status from this encounter No Functional Status Recorded Physical Exam Includes: Physical Exam from this encounter Allergies Includes: Active Allergies Substance Type Reaction Onset Date Resolved Date Statu s Vicodin Allergy Nausea, Vomiting , Diarrhea / Diarrheal disorder 04/02/2013 Active Last Documented On 4 8:16AM ; [facility] Darvocet-N 100 Allergy 02/02/2012 Acti ve Last Documented On 4 8:16AM ; [facility] Cymbalta Allergy Hives / Urticaria 09/30/2022 A ctive Last Documented On 4 8:16AM ; [facility] Encounters Encounter Provider Location Date Check-In Time Check-Out Time Diagnosis [facility] PT SHEA MAURER MD [facility] 10/03/19 24 7:59AM 8:55AM Breast Fibrocystic Disease,Screen ing Malig. Neoplasm Rectum,Normal Female Exam Insurance Includes: Active Insurance Policies Plan Name Member ID Group # Subscriber Relationship Effect kika Dates 1 - [facility] [id number] JIMMY LARSON Self 2 - [facility] [id number] JIMMY LARSON Self Clinical Notes Includes: Clinical Notes from this encounter * Progress note Date Encounter Last Documented by 10/03/2023 [facility] PT Last documented on 10/03/2023; 8:51 AM, SHEA MAURER MD; [facility] Active Problems & Conditions - CERVICAL (HPV) DNA POS - Pap Smear (ASC-US) - Urethral Urethrocele - just with pt cough. Chief Complaint The Chief Complaint is: WWE and no c/o. History of Present Illness JIMMY LARSON is a 57 year old female. - Allergy list reviewed - Medication list reviewed Current Medication - Advanced Probiotic Oral Capsule 0 days, 0 refills - Amitriptyline HCl 75 MG Oral Tablet 30 days, 0 refills - Dicyclomine HCl 10 MG Oral Capsule 23 days, 0 refills - Ibuprofen 800 MG Oral Tablet 10 days, 0 refills - Omeprazole 20 MG Oral Tablet Delayed Release 0 days, 0 refills - Osteo Bi-Flex Adv Joint Shield Oral Tablet 0 days, 0 refills - Ozempic (0.25 or 0.5 MG/DOSE) 2 MG/1.5ML Subcutaneous Solution Pen-injector 42 days, 0 refills pt also reports taking 6,000 of vitamin d ..........10/03/23 ed Past Medical/Surgical History Other: Abnormal Pap smear LGSIL on 05/28/2012 06/04/2012 colp/bx --- DEISY I 'at least' 07/09/2012 LEEP cone with DEISY I only and clear margins 12/03/2012 ASCUS but with neg HR HPV DNA 04/02/2013 LGSIL pap 10/01/2013 normal pap. Primary Care Provider: Montez Pruitt [employer] - works under Dr. Ellis Reported: Recent change in medical history Started from Yuniel Meza [employer] (at [facility]) Lexapro 10 mg started in Feb 2013 for anxiety and moodiness. Feels much better since taking it. She quit in summer of 2016 and doesn't see a difference without it. LMP: 01/22/2019, Last pap smear date 09/30/2022 result: normal, Last mammogram date: 10/26/2021 WNL per pt at [facility], result: normal, and status post tubal ligation 1998 with c/s TK. Medical: Diabetes managed by oral medication dx in 2019. Surgical / Procedural: Surgical / procedural history Breast augmentation 2005; right breast biopsy October 2012 -- [facility]-- benign; EMB 06/14/19. Previous colposcopy 09/28/2020; 08/21/18; 06/04/12. Tests: A colonoscopy was performed 01/09/20. : 2, para 2, and history of the : section at [facility] with Dr Libertad dominguez in 1990 with the cord around the neck. Repeat section in 1998 after failed with tubal ligation aslo at [facility] with TK. Sexual: Sexually active 1 PARTNER. Other: Diagnostic fiberoptic colonoscopy 01/09/2020 [facility] [place] 5 years. Screening mammogram was performed 2022 with f/u in 6 months than f/u again in 6 months- due in 10/2023 [facility] Diagnoses: Osteoarthritis in her low back Dx'd October 2012. Depression Anxiety disorder NOS Procedural: - Pap smear done 04/02/2013 Surgical: - Elective breast augmentation surgery was done at [facility] with Dr Ahmed in about 2005 - Cholecystectomy - Tubal ligation 1998 - Loop electrode excision of cervix (LEEP) 07/09/12. DEISY-1 WITH HPV EFFECT Social History Social history unchanged. Tobacco use: Smoking status: Never smoker. Alcohol: Alcohol use Occasionally. Drug Use: Not using drugs. Habits: Exercising regularly. Marital: Marital history . Sexual: Sexually active with 1 partners in the last year. Allergies - Cymbalta Reaction: Hives / Urticaria - Darvocet-N 100 - Vicodin Reaction: , Diarrhea / Diarrheal disorder Family History Hepatic disorders pt has fatty liver Diabetes mellitus MOM BROTHERS SISTERS GRANDPARENTS UNCLES Maternal: Heart disease MOM Systemic hypertension MOM Pure hypercholesterolemia Mom Diabetes mellitus MOM, brothers, sisters, grandparents, uncles Stroke syndrome mom had a couple of strokes Depression mom Malignant female breast neoplasm mother Breast cancer Mom Dx lung cancer at 75 then a breast ca at 80 (mets?) ( 08/2016 at 82) Fraternal: Heart disease BROTHERS Systemic hypertension BROTHER Heart disease Asthma Pure hypercholesterolemia brothers Diabetes mellitus Cancer lung cancer and copd- heavy smoker Sororal: Diabetes mellitus Malignant female breast neoplasm Sister, dying at age 50 Breast cancer mom and sister Daughter's: Asthma brother and daughter Review Of Systems Gastrointestinal: No nausea, no vomiting, and no hematochezia. Genitourinary: No change in urinary frequency and no feelings of urinary urgency. No urinary loss of control and no incontinence. No dysuria, no stress incontinence, does not feel like bladder is falling out, no vaginal itching or burning, and no vaginal pain during intercourse. No vaginal dryness and no unexplained vaginal bleeding. Musculoskeletal: No arthralgias and no localized joint swelling. Psychological: No anxiety, no depression, and no sleep disturbances. Physical Findings - Vitals taken 10/03/2023 08:10 am BP-Sitting 136/84 mmHg Temp-Oral 98.3 F Height 63.25 in Weight 152 lbs Body Mass Index 26.7 kg/m2 Body Surface Area 1.7 m2 Standard Measurements: - Patient was not observed to be obese. General Appearance: - Well developed. - Well nourished. - In no acute distress. Neck: Thyroid: - Showed no abnormalities. Lymph Nodes: - Supraclavicular lymph nodes were not enlarged. - Axillary lymph nodes were not enlarged. Breasts: General/bilateral: - Diffuse fibrous tissue in the breast(s). - Diffuse fibrous tissue was found in both breasts. Right Breast: - Nipple was normal. - No abnormal secretion. - No mass was found. - No tenderness. Left Breast: - Nipple was normal. - No abnormal secretion. - No mass was found. - No tenderness. Lungs: - Clear to auscultation. Cardiovascular: Heart Rate And Rhythm: - Normal. Murmurs: - No murmurs were heard. Edema: - Not present. Veins: - Spider veins. - No varicose veins seen. Back: - No right costovertebral angle tenderness. - No left costovertebral angle tenderness. Abdomen: Palpation: - Abdominal non-tender. - No mass was palpated in the abdomen. Liver: - Not enlarged. Spleen: - Not enlarged. Hernia: - No hernia was discovered. Urinary System: Bladder: - Normal. - Not distended. - Not tender. - Did not have a mass. - Incontinence was not demonstrated with heavy cough. Urethra: - Normal: no lesions. Genitalia: External: - Genitalia showed no abnormalities. - Genitalia exhibited no lesion. Pelvic: - No ovarian mass. Vagina: - Normal: no lesions. - No vaginal discharge was observed. - No cystocele was observed. - No rectocele was observed. Cervix: - Showed no lesion. - Did not demonstrate pain elicited by motion. Uterus: - Mobile. - Contour was not irregular. - Not enlarged. - Not tender. Uterine Adnexa: - Not tender. Rectovaginal: - Tissue was normal. Rectal: - Exam: normal. Rectum: - Normal. - Had no mass. Surgery: - Elective augmentation surgery of both breasts Tests Laboratory-based Chemistry: Fecal Analysis: FIT Test-Fecal Occult negative. Pathology: Excision For Pathology: Cervical Pap smear. Assessment - Fibrocystic disease of breast - NORMAL FEMALE EXAM - Screening Malig. Neoplasm Rectum Previous Tests Past Medical: Tests: Patient recently had a dexa scan never. Pathology: Excision For Pathology: Cervical Pap smear 09/30/2022 Normal. Therapy - Clinical summary provided to patient. Counseling/Education - Instructions for patient: Breast Self Exam discussed - Patient Education: Daily calcium and vitamin D - Patient Education: weight bearing exercise - Colonoscopy screening guidelines discussed - STD screening offered and declined - Bone Mineral Density Screening guidelines reviewed: BMD next year at 59 Plan StartCited - Other Follow-up need to sign release to get mammograms from [facility] from october and apr 2023; return in one year for [facility] (30 min)> EndCited - Follow-up visit 1 year or as needed She will let us know if she has other problems in the meantime. Practice Management Use of tobacco assessment performed.
--- OUTSIDE RECORDS SUMMARY | 2024-07-02 07:19 | XMS_ITS | Encounter Summary ---
Author Organization [facility] Address Formerly [facility] [place] [address] Care Team Providers Care Cooking Appliance Repair Technician Name Role Phone Devan Espinoza MD Primary Care Provider [phone] Tre Ellis MD Primary Care Provider Reason for Referral * Surgical (Routine) - Closed Specialty Diagnoses / Procedures Referred By Contac t Referred To Contact Diagnoses R31.29 Procedures Case request operating room: CYSTOSCOPY Celeste Kitchen III, MD Phone: tel: fax: Referral ID Status Reason Start Date Expiration Date Visits Re quested Visits Authorized [id number] Closed 10/10/2019 11/08/2020 1 1 Encounter Details Date Type Department Care Team (Late st Contact Info) Description 10/10/2019 Prep for Procedure [facility] [address] [place] [address] [place] [address] [place] [address] [place] [address] Social History Tobacco Use Types Packs/Day Years Used Date Smoking Tobacco: Former Smokeless Tobacco: Never Alcohol Use Standard Drinks/Week Comments Yes 0 (1 standard drink = 0.6 oz pur e alcohol) Comments Unknown Sex and Gender Information Value Date Recorded Sex Assigned at Female 05/21/2024 6:36 PM COMPLIANCE SPECIALIST Legal Sex Female 9:54 PM COMPLIANCE SPECIALIST Gender Identity Not on file Sexual Orientation Not on file COVID-19 Exposure Response Date Recorded In the last month, have you been in contact with someone who was confirmed or suspected to have Coronavirus / COVID-19? No / Unsure 10/12/2019 7:19 AM CDT documented as of this encounter Plan of Treatment Upcoming Encounters Date Type Department Care Team (Late st Contact Info) Description 07/10/2024 7:00 AM COMPLIANCE SPECIALIST Appointment [facility] [address] [address] Eladio [address], [address] [place] [address] Scheduled Orders Name Type Priority Associated Diagnoses Orde r Schedule Case request operating room: CYSTOSCOPY Case Request Routine Once for 1 Occurrences starting 10/10/2019 until 10/10/2019 documented as of this encounter Visit Diagnoses Not on filedocumented in this encounter Additional Health Concerns Infection Onset Date Last Indicated Resolved Time COVID-19 Rule Out 10/12/2019 10/12/2019 10/13/2019 3:10 PM CDT COVID-19 Rule Out 03/21/2021 03/21/2021 03/21/2021 9:57 AM COMPLIANCE SPECIALIST COVID-19 Confirmed 03/21/2021 03/21/2021 12:32 AM COMPLIANCE SPECIALIST documented as of this encounter Care Teams Cooking Appliance Repair Technician Relationship Specialty Start Date End Date Devan Espinoza MD [address] [place] [phone] PCP - General FAMILY PRACTICE 01/01/19 07/15/20 Tre Ellis MD [address] [place] [phone] PCP - General FAMILY PRACTICE 07/16/20 documented as of this encounter
--- OUTSIDE RECORDS SUMMARY | 2024-07-02 07:19 | XMS_ITS | Encounter Summary ---
Author Organization [facility] Address [facility] [place] [address] Care Team Providers Care Operations Examiner Name Role Phone None, Provider Primary Care Provider Devan Mejia MD Primary Care Provider Tre Ellis MD Primary Care Provider [phone] Encounter Details Date Type Department Care Team (Late st Contact Info) Description 10/13/2018 Abstract [facility] [address] [place] [address] , Generic Conversion, Social History Tobacco Use Types Packs/Day Years Used Date Smoking Tobacco: Never Assessed Comments Unknown Sex and Gender Information Value Date Recorded Sex Assigned at Female 05/21/2024 6:36 PM PIER WORKER Legal Sex Female 9:54 PM PIER WORKER Gender Identity Not on file Sexual Orientation Not on file documented as of this encounter Plan of Treatment Upcoming Encounters Date Type Department Care Team (Late st Contact Info) Description 07/10/2024 7:00 AM PIER WORKER Appoint[address] [facility] [address] [place] [address] Eladio Park, RAGHAV [address] [place] [phone] documented as of this encounter Visit Diagnoses Not on filedocumented in this encounter Additional Health Concerns Infection Onset Date Last Indicated Resolved Time COVID-19 Rule Out 10/12/2019 10/12/2019 10/13/2019 3:10 PM CDT COVID-19 Rule Out 03/21/2021 03/21/2021 03/21/2021 9:57 AM PIER WORKER COVID-19 Confirmed 03/21/2021 03/21/2021 12:32 AM PIER WORKER documented as of this encounter Care Teams Operations Examiner Relationship Specialty Start Date End Date None, Provider, PCP - General 12/19/18 12/31/18 Devan Espinoza MD [address] [place] [phone] PCP - General FAMILY PRACTICE 01/01/19 07/15/20 Tre Ellis MD [address] [place] [phone] PCP - General FAMILY PRACTICE 07/16/20 documented as of this encounter
--- OUTSIDE RECORDS SUMMARY | 2024-07-02 07:19 | XMS_ITS | Clinical Summary ---
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 Pap Smear (ASC-US) 07/31/2012 SHEA REGALADO MD Active Last Documented On 3 8:27AM ; [facility] CERVICAL (HPV) DNA POS 06/04/2012 SHEA Suero MD Active Last Documented On 3 9:02AM ; [facility] Plan of Treatment Pending Tests Order Diagnosis Results Due Ordering P rovider Lab Pap with HPV 10/05/23 SHEA BUNDY MD Last Documented On 4 8:55AM ; [facility] Assessments Includes: Assessments from this encounter No Assessments Recorded Medical Equipment - Implanted Devices Includes: Current Devices No Medical Equipment Recorded Medications Includes: Medications discussed during this encounter and other current Medications Current Medications (continue as prescribed) Advanced Probiotic Oral Capsule 09/30/2022 Provider: Diagnosis: Last Documented On 09/30/2022 8:15AM By Conner GILBERT ; [facility] Osteo Bi-Flex Adv Joint Shield Oral Tablet 09/30/2022 Provider: Diagnosis: Last Documented On 09/30/2022 8:15AM By Conner Andrew Carlos ; [facility] Amitriptyline HCl 75 MG Oral Tablet 09/02/2022 Provi lorena: MONTEZ PRUITT RN Diagnosis: Last Documented On 09/30/2022 8:14AM By Connermoriah Andrew Carlos ; [facility] Ozempic (0.25 or 0.5 MG/DOSE ) 2 MG/1.5ML Subcutaneous Solution Pen-injector 07/29/2022 Provider: YOJANA PRUITT RN Diagnosis: Last Documented On 09/30/2022 8:14AM By Conner [facility] ; [facility] Dicyclomine HCl 10 MG Oral Capsule 05/20/2022 Provid er: MONTEZ PRUITT RN Diagnosis: Last Documented On 09/30/2022 8:14AM [facility] ; [facility] Ibuprofen 800 MG Oral Tablet 12/14/2021 Provider: MONTEZ PRUITT RN Diagnosis: Last Documented On 09/30/2022 8:14AM [facility] ; [facility] Omeprazole 20 MG Oral Tablet Delayed Release 0 Provider: Diagnosis: Last Documented On 0 4:13PM By LOREN ALFONSO [facility] ; [facility] Medications Administered Includes: Administered Medications from this encounter No Administered Medications Recorded Results Includes: Results discussed during this encounter No Results Recorded For Specified Dates History of Present Illness Includes: History of Present Illness from this encounter No History of Present Illness Recorded Social History No Social History Recorded - Smoking Status Unknown Medical History Includes: Medical History addressed during this encounter No Medical History Recorded Family History Includes: Family History addressed during this encounter No Family History Recorded Review of Systems Includes: Review of Systems from this encounter No Review of Systems Recorded Mental Status Includes: Mental Status from this encounter No Mental Status Recorded Functional Status Includes: Functional Status from this encounter No Functional Status Recorded Physical Exam Includes: Physical Exam from this encounter No Physical Exam Recorded Allergies Includes: Active Allergies Substance Type Reaction Onset Date Resolved Date Statu s Vicodin Allergy Nausea, Vomiting , Diarrhea / Diarrheal disorder 04/02/2013 Active Last Documented On 4 8:16AM ; [facility] Darvocet-N 100 Allergy 02/02/2012 Acti ve Last Documented On 4 8:16AM ; [facility] Cymbalta Allergy Hives / Urticaria 09/30/2022 A ctive Last Documented On 4 8:16AM ; [facility] Encounters Encounter Provider Location Date Check-In Time Check-Out Time Diagnosis [facility] SHEA MOON MD [facility] 1 10:00AM 4:01PM Insurance Includes: Active Insurance Policies Plan Name Member ID Group # Subscriber Relationship Effect kika Dates 1 - [facility] [id number] JIMMY LARSON Self 2 - [facility] [id number] JIMMY LARSON Self Clinical Notes Includes: Clinical Notes from this encounter No Clinical Notes Recorded
--- OUTSIDE RECORDS SUMMARY | 2024-07-02 07:19 | XMS_ITS ---
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 Pap Smear (ASC-US) 07/31/2012 SHEA REGALADO MD Active Last Documented On 3 8:27AM ; [facility] CERVICAL (HPV) DNA POS 06/04/2012 SHEA Suero MD Active Last Documented On 3 9:02AM ; [facility] Plan of Treatment Findings Encounter Date She will let us know if she has other problems in the meantime WELL WOMAN - ESTABLISHED PT with SHEA MAURER MD 10/03/2023 Last Documented On 4 8:51AM ; [facility] Ordered follow-up visit 1 ye ar or as needed WELL WOMAN - ESTABLISHED PT with SHEA MAURER MD 10/03/2023 Last Documented On 4 8:51AM ; [facility] She will let us know if she has other problems in the meantime WELL WOMAN - ESTABLISHED PT with SHEA MAURER MD 09/30/2022 Last Documented On 3 8:53AM ; [facility] Ordered follow-up visit 1 ye ar or as needed WELL WOMAN - ESTABLISHED PT with SHEA MAURER MD 09/30/2022 Last Documented On 3 8:53AM ; [facility] She will let us know if she has other problems in the meantime WELL WOMAN - ESTABLISHED PT with SHEA MAURER MD 09/24/2021 Last Documented On 2 8:44AM ; [facility] Ordered follow-up visit 1 ye ar or as needed WELL WOMAN - ESTABLISHED PT with SHEA MAURER MD 09/24/2021 Last Documented On 2 8:44AM ; [facility] She will let us know if she has other problems in the meantime WELL WOMAN - ESTABLISHED PT with SHEA MAURER MD 08/11/2020 Last Documented On 1 9:13AM ; [facility] Ordered follow-up visit 1 ye ar or as needed WELL WOMAN - ESTABLISHED PT with SHEA MAURER MD 08/11/2020 Last Documented On 1 9:13AM ; [facility] She will let us know if she has other problems in the meantime WELL WOMAN EXAM with SHEA MAURER MD 07/19/2019 Last Documented On 0 9:07AM ; [facility] Ordered follow-up visit 1 ye ar or as needed WELL WOMAN EXAM with SHEA MAURER MD 07/19/2019 Last Documented On 0 9:07AM ; [facility] She will let us know if she has other problems in the meantime WELL WOMAN EXAM with SHEA MAURER MD 07/17/2018 Last Documented On 9 8:55AM ; [facility] Ordered follow-up visit 1 ye ar or as needed WELL WOMAN EXAM with SHEA MAURER MD 07/17/2018 Last Documented On 9 8:55AM ; [facility] She will let us know if she has other problems in the meantime ANNUAL BEAUTY OPERATOR EXAM with SHEA MAURER MD 07/14/2017 Last Documented On 8 1:34PM ; [facility] Ordered follow-up visit 1 ye ar or as needed ANNUAL BEAUTY OPERATOR EXAM with SHEA MAURER MD 07/14/2017 Last Documented On 8 1:34PM ; [facility] She will let us know if she has other problems in the meantime ANNUAL BEAUTY OPERATOR EXAM with SHEA MAURER MD 06/10/2016 Last Documented On 7 9:31AM ; [facility] Ordered follow-up visit 1 ye ar or as needed ANNUAL BEAUTY OPERATOR EXAM with SHEA MAURER MD 06/10/2016 Last Documented On 7 9:31AM ; [facility] She will let us know if she has other problems in the meantime ANNUAL BEAUTY OPERATOR EXAM with SHEA MAURER MD 05/29/2015 Last Documented On 6 9:50AM ; [facility] Ordered follow-up visit 1 ye ar or as needed ANNUAL BEAUTY OPERATOR EXAM with SHEA MAURER MD 05/29/2015 Last Documented On 6 9:50AM ; [facility] She will let us know if she has other problems in the meantime ANNUAL BEAUTY OPERATOR EXAM with SHEA MAURER MD 05/16/2014 Last Documented On 5 11:13AM ; [facility] Ordered follow-up visit 1 ye ar or as needed ANNUAL BEAUTY OPERATOR EXAM with SHEA MAURER MD 05/16/2014 Last Documented On 5 11:13AM ; [facility] She will let us know if she has other problems in the mean time ANNUAL BEAUTY OPERATOR EXAM with SHEA MAURER MD 04/02/2013 Last Documented On 3 11:35AM ; [facility] Ordered follow-up visit 1 ye ar or as needed ANNUAL BEAUTY OPERATOR EXAM with SHEA MAURRE MD 04/02/2013 Last Documented On 3 11:35AM ; [facility] Ordered Clinical summary pro vided to patient NEW TIPPLE OILER EXAM with SHEA MAURER MD 02/02/2012 Last Documented On 2 1:39PM ; [facility] Pending Tests Order Diagnosis Results Due Ordering P rovider Lab Pap with HPV 10/05/23 SHEA BUNDY MD Last Documented On 4 8:55AM ; [facility] Instructions to patient Instructions for patient : B reast Self Exam discussed Last Documented On 4 8:33AM ; [facility] Instructions for patient : B reast Self Exam discussed Last Documented On 3 8:38AM ; [facility] Instructions for patient : B reast Self Exam discussed Last Documented On 2 8:19AM ; [facility] Instructions for patient : B reast Self Exam discussed Last Documented On 1 8:55AM ; [facility] Instructions for patient : B reast Self Exam discussed Last Documented On 0 8:22AM ; [facility] Instructions for patient : B reast Self Exam discussed Last Documented On 9 8:32AM ; [facility] Instructions for patient : B reast Self Exam discussed Last Documented On 8 1:14PM ; [facility] Instructions for patient : B reast Self Exam discussed Last Documented On 7 9:14AM ; [facility] Instructions for patient : B reast Self Exam discussed Last Documented On 6 9:33AM ; [facility] Instructions for patient : B reast Self Exam discussed Last Documented On 5 10:55AM ; [facility] Instructions for patient : B reast Self Exam discussed Last Documented On 3 11:05AM ; [facility] Education and Decision Aids were provided during visit for: STD screening offered and de clined Last Documented On 4 8:33AM ; [facility] Bone Mineral Density Screeni ng guidelines reviewed : BMD next year at 59 Last Documented On 4 8:40AM ; [facility] Patient Education: Daily clayton cium and vitamin D Last Documented On 4 8:33AM ; [facility] Patient Education: weight be aring exercise Last Documented On 4 8:33AM ; [facility] Colonoscopy screening guidel ashwini discussed Last Documented On 4 8:33AM ; [facility] STD screening offered and de clined Last Documented On 3 8:38AM ; [facility] Bone Mineral Density Screeni ng guidelines reviewed Last Documented On 3 8:38AM ; [facility] Patient Education: Daily clayton cium and vitamin D Last Documented On 3 8:38AM ; [facility] Patient Education: weight be aring exercise Last Documented On 3 8:38AM ; [facility] Colonoscopy screening guidel ashwini discussed Last Documented On 3 8:38AM ; [facility] STD screening offered and de clined Last Documented On 2 8:19AM ; [facility] Bone Mineral Density Screeni ng guidelines reviewed Last Documented On 2 8:19AM ; [facility] Patient Education: Daily clayton cium and vitamin D Last Documented On 2 8:19AM ; [facility] Patient Education: weight be aring exercise Last Documented On 2 8:19AM ; [facility] Colonoscopy screening guidel ashwini discussed Last Documented On 2 8:19AM ; [facility] INFORMED CONSENT DISCUSSION: Colposcopy was discussed in detail including risk of post procedure bleeding and infection. Patient is not to have anything in the vagina till all of the discharge quits following the procedure. Patient expressed understanding of the above and consented to the procedure Last Documented On 1 3:48PM ; [facility] STD screening offered and de clined Last Documented On 1 8:55AM ; [facility] Bone Mineral Density Screeni ng guidelines reviewed will consider in 2021 Last Documented On 1 9:04AM ; [facility] Patient Education: Daily clayton cium and vitamin D Last Documented On 1 8:55AM ; [facility] Patient Education: weight be aring exercise Last Documented On 1 8:55AM ; [facility] Colonoscopy screening guidel ashwini discussed Last Documented On 1 8:55AM ; [facility] STD screening offered and de clined Last Documented On 0 8:22AM ; [facility] Bone Mineral Density Screeni ng guidelines reviewed Last Documented On 0 8:22AM ; [facility] Patient Education: Daily clayton cium and vitamin D Last Documented On 0 8:22AM ; [facility] Patient Education: weight be aring exercise Last Documented On 0 8:22AM ; [facility] Colonoscopy screening guidel ashwini discussed Last Documented On 0 8:22AM ; [facility] INFORMED CONSENT DISCUSSION: Endometrial biopsy was discussed in detail including risk of bleeding, infection, discomfort, insufficient specimen with need to repeat test, and rare incidence of uterine perforation. Patient expressed understanding of the above and consented to the procedure Last Documented On 0 4:20PM ; [facility] INFORMED CONSENT DISCUSSION: Colposcopy was discussed in detail including risk of post procedure bleeding and infection. Patient is not to have anything in the vagina till all of the discharge quits following the procedure. Patient expressed understanding of the above and consented to the procedure Last Documented On 9 9:45AM ; [facility] STD screening offered and de clined Last Documented On 9 8:32AM ; [facility] Bone Mineral Density Screeni ng guidelines reviewed Last Documented On 9 8:32AM ; [facility] Patient Education: Daily clayton cium and vitamin D Last Documented On 9 8:32AM ; [facility] Patient Education: weight be aring exercise Last Documented On 9 8:32AM ; [facility] Colonoscopy screening guidel ashwini discussed Last Documented On 9 8:32AM ; [facility] STD screening offered and de clined Last Documented On 8 1:14PM ; [facility] Bone Mineral Density Screeni ng guidelines reviewed Last Documented On 8 1:14PM ; [facility] Colonoscopy screening guidel ashwini discussed Last Documented On 8 1:14PM ; [facility] STD screening offered and de clined Last Documented On 7 9:14AM ; [facility] Bone Mineral Density Screeni ng guidelines reviewed Last Documented On 7 9:14AM ; [facility] Colonoscopy screening guidel ashwini discussed Last Documented On 7 9:14AM ; [facility] STD screening offered and de clined Last Documented On 6 9:33AM ; [facility] Bone Mineral Density Screeni ng guidelines reviewed Last Documented On 6 9:33AM ; [facility] Patient Education: Daily clayton cium and vitamin D Last Documented On 6 9:33AM ; [facility] Patient Education: weight be aring exercise Last Documented On 6 9:33AM ; [facility] Colonoscopy screening guidel ashwini discussed Last Documented On 6 9:33AM ; [facility] STD screening offered and de clined Last Documented On 5 10:55AM ; [facility] Bone Mineral Density Screeni ng guidelines reviewed Last Documented On 5 10:55AM ; [facility] Patient Education: Daily clayton cium and vitamin D Last Documented On 5 10:55AM ; [facility] Patient Education: weight be aring exercise Last Documented On 5 10:55AM ; [facility] Colonoscopy screening guidel ashwini discussed Last Documented On 5 10:55AM ; [facility] STD screening offered and de clined Last Documented On 3 11:05AM ; [facility] Bone Mineral Density Screeni ng guidelines reviewed Last Documented On 3 11:05AM ; [facility] Patient Education: Daily clayton cium and vitamin D Last Documented On 3 11:05AM ; [facility] Patient Education: weight be aring exercise Last Documented On 3 11:05AM ; [facility] Colonoscopy screening guidel ashwini discussed Last Documented On 3 11:05AM ; [facility] INFORMED CONSENT DISCUSSION: Prior to the procedure the risks of LEEP were discussed with the patient, including but not limited to bleeding (both during the procedure and in the first 2 weeks following), infection, cervical stenosis, and inadequate margins requiring a repeat procedure. The benefits of obtaining excisional biopsy results and possible resolution of cervical dysplasia were communicated. The alternatives of watchful waiting with repeat colposcopy in two months, or cone biopsy in the ambulatory surgery center were discussed. The [employer] pamphlet on LEEP has been given and discussed. Patient expressed understanding of the above and consented to the procedure Last Documented On 3 10:49AM ; [facility] INFORMED CONSENT DISCUSSION: Colposcopy was discussed in detail including risk of post procedure bleeding and infection Patient is not to have anything in the vagina--- no douches, tampons, tub baths, or sex---- following the procedure till all the discharge quits. Patient expressed understanding of the above and consented to the procedure Last Documented On 3 10:05AM ; [facility] INFORMED CONSENT DISCUSSION: Colposcopy was discussed in detail including risk of post procedure bleeding and infection. Patient is not to have anything in the vagina till all the discharge finishes. NO Douches, tampons, tub baths, sex. Patient expressed understanding of the above and consented to the procedure Last Documented On 2 5:05PM ; [facility] Assessments Includes: Assessments for all patient encounters Findings Encounter Date Fibrocystic disease of breast WELL WOMAN - ESTABLISHED PT with SHEA MAURER MD 10/03/2023 Last Documented On 4 8:51AM ; [facility] NORMAL FEMALE EXAM WELL WOMAN - ESTABLISHED PT w ith SHEA MAURER MD 10/03/2023 Last Documented On 4 8:51AM ; [facility] Screening Malig. Neoplasm Rectum WELL WO MAN - ESTABLISHED PT with SHEA MAURER MD 10/03/2023 Last Documented On 4 8:51AM ; [facility] Fibrocystic disease of breast WELL WOMAN - ESTABLISHED PT with SHEA MAURER MD 09/30/2022 Last Documented On 3 8:53AM ; [facility] NORMAL FEMALE EXAM WELL WOMAN - ESTABLISHED PT w ith SHEA MAURER MD 09/30/2022 Last Documented On 3 8:53AM ; [facility] Screening Malig. Neoplasm Rectum WELL WO MAN - ESTABLISHED PT with SHEA MAURER MD 09/30/2022 Last Documented On 3 8:53AM ; [facility] Fibrocystic disease of breast WELL WOMAN - ESTABLISHED PT with SHEA MAURER MD 09/24/2021 Last Documented On 2 8:44AM ; [facility] NORMAL FEMALE EXAM WELL WOMAN - ESTABLISHED PT w ith SHEA MAURER MD 09/24/2021 Last Documented On 2 8:44AM ; [facility] Screening Malig. Neoplasm Rectum WELL WO MAN - ESTABLISHED PT with SHEA MAURER MD 09/24/2021 Last Documented On 2 8:44AM ; [facility] Stress incontinence WELL WOMAN - ESTABLISHED PT with SHEA MAURER MD 09/24/2021 Last Documented On 2 8:44AM ; [facility] Cervical dysplasia--mild (DEISY I) TELEHEALTH with SHEA MAURER MD 10/13/2020 Last Documented On 1 12:15PM ; [facility] Cervical Pap smear: low grad e squamous intraepithelial lesion COLPOSCOPY with SHEA MAURER MD 09/28/2020 Last Documented On 1 3:49PM ; [facility] Fibrocystic disease of breast WELL WOMAN - ESTABLISHED PT with SHEA MAURER MD 08/11/2020 Last Documented On 1 9:13AM ; [facility] NORMAL FEMALE EXAM WELL WOMAN - ESTABLISHED PT w ith SHEA MAURER MD 08/11/2020 Last Documented On 1 9:13AM ; [facility] Screening Malig. Neoplasm Rectum WELL WO MAN - ESTABLISHED PT with SHEA MAURER MD 08/11/2020 Last Documented On 1 9:13AM ; [facility] Fibrocystic disease of breast WELL WOMAN EXAM wi th SHEA MAURER MD 07/19/2019 Last Documented On 0 9:07AM ; [facility] NORMAL FEMALE EXAM WELL WOMAN EXAM with SHEA MILLER MD 07/19/2019 Last Documented On 0 9:07AM ; [facility] Screening Malig. Neoplasm Rectum WELL WOMAN EXAM with SHEA MAURER MD 07/19/2019 Last Documented On 0 9:07AM ; [facility] Nonspecific abnormal imaging findings of genitourinary system 2 WK CK-UP with SHEA MAURER MD 06/25/2019 Last Documented On 0 3:51PM ; [facility] Nonspecific abnormal imaging findings of genitourinary system ENDOMETRIAL BIOPSY with SHEA MAURER MD 06/14/2019 Last Documented On 0 4:23PM ; [facility] Nonspecific abnormal imaging findings of genitourinary system CONSULTATION with SHEA MAURER MD 06/04/2019 Last Documented On 0 5:02PM ; [facility] Abnormal Pap smear: atypical squamous cells of undetermined significance COLPOSCOPY with SHEA MAURER MD 08/21/2018 Last Documented On 9 9:46AM ; [facility] Cervical high risk human pap illoma virus DNA test was positive COLPOSCOPY with SHEA MAURER MD 08/21/2018 Last Documented On 9 9:46AM ; [facility] Assessment of urethrocele on the urethra WELL WOMAN EXAM with SHEA MAURER MD 07/17/2018 Last Documented On 9 8:55AM ; [facility] Fibrocystic disease of breast WELL WOMAN EXAM wi SHEA MAURER MD 07/17/2018 Last Documented On 9 8:55AM ; [facility] NORMAL FEMALE EXAM WELL WOMAN EXAM with SHEA MILLER MD 07/17/2018 Last Documented On 9 8:55AM ; [facility] Screening Malig. Neoplasm Rectum WELL WOMAN EXAM with SHEA MAURER MD 07/17/2018 Last Documented On 9 8:55AM ; [facility] Urethrocele CONSULTATION with SHEA MAURER MD 06/05/2018 Last Documented On 9 5:52PM ; [facility] Fibrocystic disease of breast ANNUAL BEAUTY OPERATOR EXAM wi SHEA MAURER MD 07/14/2017 Last Documented On 8 1:34PM ; [facility] NORMAL FEMALE EXAM ANNUAL BEAUTY OPERATOR EXAM with SHEA MILLER MD 07/14/2017 Last Documented On 8 1:34PM ; [facility] Screening Malig. Neoplasm Rectum ANNUAL BEAUTY OPERATOR EXAM with SHEA MAURER MD 07/14/2017 Last Documented On 8 1:34PM ; [facility] Fibrocystic disease of breast ANNUAL BEAUTY OPERATOR EXAM wi SHEA MAURER MD 06/10/2016 Last Documented On 7 9:31AM ; [facility] NORMAL FEMALE EXAM ANNUAL BEAUTY OPERATOR EXAM with SHEA MILLER MD 06/10/2016 Last Documented On 7 9:31AM ; [facility] Screening Malig. Neoplasm Rectum ANNUAL BEAUTY OPERATOR EXAM with SHEA MAURER MD 06/10/2016 Last Documented On 7 9:31AM ; [facility] Fibrocystic disease of breast ANNUAL BEAUTY OPERATOR EXAM wi th SHEA MAURER MD 05/29/2015 Last Documented On 6 9:50AM ; [facility] NORMAL FEMALE EXAM ANNUAL BEAUTY OPERATOR EXAM with SHEA MILLER MD 05/29/2015 Last Documented On 6 9:50AM ; [facility] Screening Malig. Neoplasm Rectum ANNUAL BEAUTY OPERATOR EXAM with SHEA MAURER MD 05/29/2015 Last Documented On 6 9:50AM ; [facility] Breast fibrocystic disease ANNUAL BEAUTY OPERATOR EXAM with SHEA MAURER MD 05/16/2014 Last Documented On 5 11:13AM ; [facility] NORMAL FEMALE EXAM ANNUAL BEAUTY OPERATOR EXAM with SHEA MILLER MD 05/16/2014 Last Documented On 5 11:13AM ; [facility] Screening Malig. Neoplasm Rectum ANNUAL BEAUTY OPERATOR EXAM with SHEA MAURER MD 05/16/2014 Last Documented On 5 11:13AM ; [facility] Cervical Pap smear: low grad e squamous intraepithelial lesion PAP SMEAR ONLY with SHEA MAURER MD 10/01/2013 Last Documented On 4 9:20AM ; [facility] Breast fibrocystic disease ANNUAL BEAUTY OPERATOR EXAM with SHEA MAURER MD 04/02/2013 Last Documented On 3 11:35AM ; [facility] Cervical dysplasia--mild (DEISY I) ANNUAL BEAUTY OPERATOR EXAM with SHEA MAURER MD 04/02/2013 Last Documented On 3 11:35AM ; [facility] NORMAL FEMALE EXAM ANNUAL BEAUTY OPERATOR EXAM with SHEA MILLER MD 04/02/2013 Last Documented On 3 11:35AM ; [facility] Screening Malig. Neoplasm Rectum ANNUAL BEAUTY OPERATOR EXAM with SHEA MAURER MD 04/02/2013 Last Documented On 3 11:35AM ; [facility] Cervical dysplasia--mild (DEISY I) PAP SMEAR ONLY with SHEA MAURER MD 12/03/2012 Last Documented On 3 2:03PM ; [facility] Cervical dysplasia--mild (DEISY I) RECHECK with ANDREW MAURER MD 07/31/2012 Last Documented On 3 8:39AM ; [facility] Cervical dysplasia--mild (CI N I) 'at least' on path report LEEP with SHEA MAURER MD 07/09/2012 Last Documented On 3 11:33AM ; [facility] Cervical dysplasia--mild (DEISY I) RECHECK with ANDREW MAURER MD 06/26/2012 Last Documented On 3 9:16AM ; [facility] Cervical Pap smear: low grad e squamous intraepithelial lesion COLPOSCOPY with SHEA MAURER MD 06/04/2012 Last Documented On 3 10:08AM ; [facility] Cervical High Risk HPV , DNA test positive COLPOSCOPY with SHEA MAURER MD 03/07/2012 Last Documented On 2 5:10PM ; [facility] Abnormal Pap smear: atypical squamous cells of undetermined significance NEW TIPPLE OILER EXAM with SHEA MAURER MD 02/02/2012 Last Documented On 2 1:39PM ; [facility] Cervical High Risk HPV , DNA test positive NEW TIPPLE OILER EXAM with SHEA MAURER MD 02/02/2012 Last Documented On 2 1:39PM ; [facility] Instructions Includes: Instructions for all patient encounters Instructions to patient Instructions for patient : B reast Self Exam discussed Last Documented On 4 8:33AM ; [facility] Instructions for patient : B reast Self Exam discussed Last Documented On 3 8:38AM ; [facility] Instructions for patient : B reast Self Exam discussed Last Documented On 2 8:19AM ; [facility] Instructions for patient : B reast Self Exam discussed Last Documented On 1 8:55AM ; [facility] Instructions for patient : Breast Self Exam discussed Last Documented On 0 8:22AM ; [facility] Instructions for patient : B reast Self Exam discussed Last Documented On 9 8:32AM ; [facility] Instructions for patient : B reast Self Exam discussed Last Documented On 8 1:14PM ; [facility] Instructions for patient : B reast Self Exam discussed Last Documented On 7 9:14AM ; [facility] Instructions for patient : B reast Self Exam discussed Last Documented On 6 9:33AM ; [facility] Instructions for patient : B reast Self Exam discussed Last Documented On 5 10:55AM ; [facility] Instructions for patient : B reast Self Exam discussed Last Documented On 3 11:05AM ; [facility] Education and Decision Aids were provided during visit for: STD screening offered and de clined Last Documented On 4 8:33AM ; [facility] Bone Mineral Density Screeni ng guidelines reviewed : BMD next year at 59 Last Documented On 4 8:40AM ; [facility] Patient Education: Daily clayton cium and vitamin D Last Documented On 4 8:33AM ; [facility] Patient Education: weight be aring exercise Last Documented On 4 8:33AM ; [facility] Colonoscopy screening guidel ashwini discussed Last Documented On 4 8:33AM ; [facility] STD screening offered and de clined Last Documented On 3 8:38AM ; [facility] Bone Mineral Density Screeni ng guidelines reviewed Last Documented On 3 8:38AM ; [facility] Patient Education: Daily clayton cium and vitamin D Last Documented On 3 8:38AM ; [facility] Patient Education: weight be aring exercise Last Documented On 3 8:38AM ; [facility] Colonoscopy screening guidel ashwini discussed Last Documented On 3 8:38AM ; [facility] STD screening offered and de clined Last Documented On 2 8:19AM ; [facility] Bone Mineral Density Screeni ng guidelines reviewed Last Documented On 2 8:19AM ; [facility] Patient Education: Daily clayton cium and vitamin D Last Documented On 2 8:19AM ; [facility] Patient Education: weight be aring exercise Last Documented On 2 8:19AM ; [facility] Colonoscopy screening guidel ashwini discussed Last Documented On 2 8:19AM ; [facility] INFORMED CONSENT DISCUSSION: Colposcopy was discussed in detail including risk of post procedure bleeding and infection. Patient is not to have anything in the vagina till all of the discharge quits following the procedure. Patient expressed understanding of the above and consented to the procedure Last Documented On 1 3:48PM ; [facility] STD screening offered and de clined Last Documented On 1 8:55AM ; [facility] Bone Mineral Density Screeni ng guidelines reviewed will consider in 2021 Last Documented On 1 9:04AM ; [facility] Patient Education: Daily clayton cium and vitamin D Last Documented On 1 8:55AM ; [facility] Patient Education: weight be aring exercise Last Documented On 1 8:55AM ; [facility] Colonoscopy screening guidel ashwini discussed Last Documented On 1 8:55AM ; [facility] STD screening offered and de clined Last Documented On 0 8:22AM ; [facility] Bone Mineral Density Screeni ng guidelines reviewed Last Documented On 0 8:22AM ; [facility] Patient Education: Daily clayton cium and vitamin D Last Documented On 0 8:22AM ; [facility] Patient Education: weight be aring exercise Last Documented On 0 8:22AM ; [facility] Colonoscopy screening guidel ashwini discussed Last Documented On 0 8:22AM ; [facility] INFORMED CONSENT DISCUSSION: Endometrial biopsy was discussed in detail including risk of bleeding, infection, discomfort, insufficient specimen with need to repeat test, and rare incidence of uterine perforation. Patient expressed understanding of the above and consented to the procedure Last Documented On 0 4:20PM ; [facility] INFORMED CONSENT DISCUSSION: Colposcopy was discussed in detail including risk of post procedure bleeding and infection. Patient is not to have anything in the vagina till all of the discharge quits following the procedure. Patient expressed understanding of the above and consented to the procedure Last Documented On 9 9:45AM ; [facility] STD screening offered and de clined Last Documented On 9 8:32AM ; [facility] Bone Mineral Density Screeni ng guidelines reviewed Last Documented On 9 8:32AM ; [facility] Patient Education: Daily clayton cium and vitamin D Last Documented On 9 8:32AM ; [facility] Patient Education: weight be aring exercise Last Documented On 9 8:32AM ; [facility] Colonoscopy screening guidel ashwini discussed Last Documented On 9 8:32AM ; [facility] STD screening offered and de clined Last Documented On 8 1:14PM ; [facility] Bone Mineral Density Screeni ng guidelines reviewed Last Documented On 8 1:14PM ; [facility] Colonoscopy screening guidel ashwini discussed Last Documented On 8 1:14PM ; [facility] STD screening offered and de clined Last Documented On 7 9:14AM ; [facility] Bone Mineral Density Screeni ng guidelines reviewed Last Documented On 7 9:14AM ; [facility] Colonoscopy screening guidel ashwini discussed Last Documented On 7 9:14AM ; [facility] STD screening offered and de clined Last Documented On 6 9:33AM ; [facility] Bone Mineral Density Screeni ng guidelines reviewed Last Documented On 6 9:33AM ; [facility] Patient Education: Daily clayton cium and vitamin D Last Documented On 6 9:33AM ; [facility] Patient Education: weight be aring exercise Last Documented On 6 9:33AM ; [facility] Colonoscopy screening guidel ashwini discussed Last Documented On 6 9:33AM ; [facility] STD screening offered and de clined Last Documented On 5 10:55AM ; [facility] Bone Mineral Density Screeni ng guidelines reviewed Last Documented On 5 10:55AM ; [facility] Patient Education: Daily clayton cium and vitamin D Last Documented On 5 10:55AM ; [facility] Patient Education: weight be aring exercise Last Documented On 5 10:55AM ; [facility] Colonoscopy screening guidel ashwini discussed Last Documented On 5 10:55AM ; [facility] STD screening offered and de clined Last Documented On 3 11:05AM ; [facility] Bone Mineral Density Screeni ng guidelines reviewed Last Documented On 3 11:05AM ; [facility] Patient Education: Daily clayton cium and vitamin D Last Documented On 3 11:05AM ; [facility] Patient Education: weight be aring exercise Last Documented On 3 11:05AM ; [facility] Colonoscopy screening guidel ashwini discussed Last Documented On 3 11:05AM ; [facility] INFORMED CONSENT DISCUSSION: Prior to the procedure the risks of LEEP were discussed with the patient, including but not limited to bleeding (both during the procedure and in the first 2 weeks following), infection, cervical stenosis, and inadequate margins requiring a repeat procedure. The benefits of obtaining excisional biopsy results and possible resolution of cervical dysplasia were communicated. The alternatives of watchful waiting with repeat colposcopy in two months, or cone biopsy in the ambulatory surgery center were discussed. The [employer] pamphlet on LEEP has been given and discussed. Patient expressed understanding of the above and consented to the procedure Last Documented On 3 10:49AM ; [facility] INFORMED CONSENT DISCUSSION: Colposcopy was discussed in detail including risk of post procedure bleeding and infection Patient is not to have anything in the vagina--- no douches, tampons, tub baths, or sex---- following the procedure till all the discharge quits. Patient expressed understanding of the above and consented to the procedure Last Documented On 3 10:05AM ; [facility] INFORMED CONSENT DISCUSSION: Colposcopy was discussed in detail including risk of post procedure bleeding and infection. Patient is not to have anything in the vagina till all the discharge finishes. NO Douches, tampons, tub baths, sex. Patient expressed understanding of the above and consented to the procedure Last Documented On 2 5:05PM ; [facility] Medical Equipment - Implanted Devices Includes: Current and historical Devices No Medical Equipment Recorded Medications Includes: Current and historical Medications Current Medications (continue as prescribed) Advanced Probiotic Oral Capsule 09/30/2022 Provider: Diagnosis: Last Documented On 09/30/2022 8:15AM By Conner Andrew Carlos ; [facility] Osteo Bi-Flex Adv Joint Shield Oral Tablet 09/30/2022 Provider: Diagnosis: Last Documented On 09/30/2022 8:15AM By Conner Andrew Carlos ; [facility] Amitriptyline HCl 75 MG Oral Tablet 09/02/2022 Provi lorena: MONTEZ PRUITT RN Diagnosis: Last Documented On 09/30/2022 8:14AM By Conner Andrew Carlos ; [facility] Ozempic (0.25 or 0.5 MG/DOSE ) 2 MG/1.5ML Subcutaneous Solution Pen-injector 07/29/2022 Provider: YOJANA PRUITT RN Diagnosis: Last Documented On 09/30/2022 8:14AM By Conner Andrew Carlos ; [facility] Dicyclomine HCl 10 MG Oral Capsule 05/20/2022 Provid er: MONTEZ PRUITT RN Diagnosis: Last Documented On 09/30/2022 8:14AM By Conner Andrew Carlos ; [facility] Ibuprofen 800 MG Oral Tablet 12/14/2021 Provider: MONTEZ PRUITT RN Diagnosis: Last Documented On 09/30/2022 8:14AM By Conner Andrew Carlos ; [facility] Omeprazole 20 MG Oral Tablet Delayed Release 0 Provider: Diagnosis: Last Documented On 0 4:13PM By LOREN GILBERT ; [facility] Past Medications on file Flagyl 250 MG Oral Tablet 09/28/2020 - 09/24/2021 Prov ider: Diagnosis: tid for Sivo Last Documented On 2 8:08AM By LOREN GILBERT ; [facility] metFORMIN HCl 500 MG Oral Tablet 08/11/2020 - 10/01/19 23 Provider: Diagnosis: Last Documented On 09/30/2022 8:14AM By Conner GILBERT ; [facility] Gabapentin 300 MG Oral Capsule 08/11/2020 - 09/30/2022 Provider: Diagnosis: bid Last Documented On 09/30/2022 8:14AM By Conner GILBERT ; [facility] Diflucan 150 MG Oral Tablet 10/18/2019 - 08/11/2020 Pr ovider: SHEA MAURER MD Diagnosis: as directed one tablet po, prn yeast infection Last Documented On 8:39AM By LOREN ALFONSO Carlos ; [facility] carBAMazepine ER 100 MG Oral Capsule Extended Release 12 Hour 07/19/2019 - 08/11/2020 Provider: Diagnosis: Last Documented On 8:39AM By LOREN GILBERT ; [facility] traMADol HCl 50 MG Oral Tablet 06/04/2019 - 08/11/2020 Provider: Diagnosis: Last Documented On 8:39AM By LOREN GILBERT ; [facility] CeleXA 20MG Oral Tablet 06/05/2018 - 09/30/2022 Provid er: Diagnosis: Last Documented On 09/30/2022 8:15AM By Conner GILBERT ; [facility] KP Vitamin D3 2000UNIT Oral Capsule 06/05/2018 - 09/24 Provider: Diagnosis: Last Documented On 2 8:09AM By LOREN GILBERT ; [facility] Calcium 600MG Oral Tablet 06/05/2018 - 09/30/2022 Prov ider: Diagnosis: Last Documented On 09/30/2022 8:15AM By Conner GILBERT ; [facility] MetroGel-Vaginal 0.75 % Gel 06/15/2015 - 07/19/2019 Pr ovider: HSEA MAURER MD Diagnosis: Sig: one applicator full vaginally qhs x 5 night s Last Documented On 0 8:20AM By SEBASTIAN JEFFERS LPN ; [facility] GNP Vitamin D 1000 UNIT Tablet 05/29/2015 - 06/05/2018 Provider: Diagnosis: Last Documented On 9 4:30PM By LOREN GILBERT ; [facility] Vicodin 5-300 MG OR TABS 04/02/2013 - 05/29/2015 Provi lorena: Diagnosis: takes prn low back pain -- every 2-3 months Last Documented On 6 8:59AM By SEBASTIAN JEFFERS LPN ; [facility] Lexapro 10 MG OR TABS 04/02/2013 - 07/14/2017 Provider : Diagnosis: Last Documented On 8 1:00PM By LOREN GIBLERT ; [facility] Medications Administered Includes: Administered Medications in patient's chart No Administered Medications Recorded Vital Signs Includes: Vital Signs from 07/02/2023 through 07/02/2024 Vital Name 10/03/2023 08:10A Blood Pressure Sitting (mmHg) 136/84 Temp-Oral (F) 98.3 Height (in) 63.25 Weight (lb) 152 Body Mass Index 26.7 Body Surface Area 1.7 Last Documented: On 10/03/2023 8:18AM ; [facility] Results Includes: Results from 07/02/2023 through 07/02/2024 FOBT-FECAL OCCULT BLOOD TEST [facility] Ordered by SHEA MAURER MD on 10/03/19 Collected: 10/03/2023 Reported: 10/03/19 09:17 Last Documented On 4 9:18AM ; [facility] All test results are final unless otherw ise noted. OCCULT BLOOD: Negative (NEG.) N (Normal) Last Documented On 4 9:18AM ; [facility] INT. QC ACCEPTABLE? Yes N (Normal) Last Documented On 4 9:18AM ; [facility] LOT # & EXP. DATE [id number] Exp. 09/04/2025 N (Normal) Last Documented On 4 9:18AM ; [facility] PAP WITH HPV [facility] Ordered by SHEA MAURER MD on 10/03/19 [address] [place], [address] Collected: 10/03/2023 Report ed: 10/06/2023 14:31 tel: Last Documented On 4 6:07PM ; [facility] Reviewed by SHEA Parada on 10/16/2023; All test results are final unless otherwise noted. Review Note Provider Name Date pap smear is WNL. HR HPV test is negative. SHEA MAURER MD 10/16/2023 HPV mRNA E6/E7 Not Detected (Not Detected) N (Normal) Last Documented On 4 2:56PM ; [facility] Note: Methodology: Director Of Automation-Mediate d AmplificationThis assay detects E6/E7 viral messenger RNA (mRNA) from 14high-risk HPV types (16,18,31,33,35,39,45,51,52,56,58,59,66,68).Cervical sources are required for HPV testing.If a vaginal source from a patient who has had atotal hysterectomy with removal of cervix wassubmitted, please contact the testing laboratoryfor alternative testing options.For additional information, please refer [email or web address](This link if provided for information/educational purposes only.)THIS TEST WAS PERFORMED AT:[employer] [id number] [place] [id number] VO,MDEXPLANATORY NOTE:The Pap is a screening test for cervical cancer. It isnot a diagnostic test and is subject to false negativeand false positive results. It is most reliable when asatisfactory sample, regularly obtained, is submittedwith relevant clinical findings and history, and whenthe Pap result is evaluated along with historic andcurrent clinical information.THIS TEST WAS PERFORMED AT:[employer] [id number] VO,MDResponsible Observer: (rfl) PAP SMEAR ABNORMAL? NO None Last Documented On 4 2:56PM ; [facility] Note: Responsible Observer: (PA) PAP WITH HPV See Note None Last Documented On 4 2:56PM ; [facility] Note: None [id number] tisfactory for evaluation.Endocervical/transformation zone componentpresent.Cytology Results: Negative for intraepitheliallesion or malignancy.This Pap test has been evaluated with computerassisted technology.JAF, CT(ASCP)CT Screening Location: [place] [address] [place] [id number] Observer: (LATRICE) Reported Physicians [facility] Ana evangelista Ordered by SHEA MAURER MD on 10/03/19 [address] [facility], [place], [address] Collected: 10/03/2023 Report ed: 10/06/2023 14:32 tel: Last Documented On 4 6:07PM ; [facility] Reviewed by SHEA Parada on 10/16/2023; All test results are final unless otherwise noted. Review Note Provider Name Date pap smear is WNL. HR HPV test is negative. SHEA MAURER MD 10/16/2023 Reported Physicians See Note None Last Documented On 10/06/2023 2:56PM ; [facility] Note: Reported Physicians:Ordering: Shea Maurer CAttending: SHEA MAURER History of Present Illness History of Present Illness not supported for this document type No History of Present Illness Recorded Social History Description Last Updated Smoking status : Never smoker 07/19/2019 Last Documented On 0 9:07AM ; [facility] Not using drugs 07/14/2017 Last Documented On 8 1:34PM ; [facility] Exercising regularly 06/10/2016 Last Documented On 7 9:31AM ; [facility] Marital history 06/10/2016 Last Documented On 7 9:31AM ; [facility] Sexually active with 1 partners in the l ast year 06/10/2016 Last Documented On 7 9:31AM ; [facility] Social history unchanged 04/02/2013 Last Documented On 3 11:35AM ; [facility] Alcohol use Occasionally 03/07/2012 Last Documented On 2 5:10PM ; [facility] Non-smoker 03/07/2012 Last Documented On 2 5:10PM ; [facility] Sexually active 03/07/2012 Last Documented On 2 5:10PM ; [facility] Procedures and Surgical History Includes: Procedures from 07/02/2023 through 07/02/2024 Procedures Code Diagnosis Performing Provider Service Location Service Date OBTAINING A PAP SMEAR (DISTINCT PROCEDURAL SERVICE DIFFERENT SITE) Q0091 Encounter for screening for malignant neoplasm of cervix SHEA MAURER MD [facility] 10/03/2023 Last Documented On 4 10:19AM ; [facility] FIT TEST-SCREENING FOR FECAL OCCULT BLOOD (CLIA WAIVED) 43[address] Encounter for screening for malignant neoplasm of colon SHEA MAURER MD [facility] 10/03/2023 Last Documented On 4 10:20AM ; [facility] Surgical History Last Updated Surgical / procedural histor y Breast augmentation 2005; right breast biopsy October 2012 -- [facility]-- benign; EMB 06/14/19 09/30/2022 Last Documented On 3 8:53AM ; [facility] History of tubal ligation 1998 1 Last Documented On 1 3:49PM ; [facility] Previous colposcopy 08/21/2018 ; 06/04/12 06/04/2019 Last Documented On 0 5:02PM ; [facility] History of Loop electrode ex cision of cervix (LEEP) 07/09/12. DEISY-1 WITH HPV EFFECT 12/03/2012 Last Documented On 3 2:03PM ; [facility] History of cholecystectomy 03/07/2012 Last Documented On 2 5:10PM ; [facility] Medical History Includes: Medical History in patient's chart Description Last Updated History of screening mammogr am was performed 2022 with f/u in 6 months than f/u again in 6 months- due in 10/2023 [facility] 10/03/2023 Last Documented On 4 8:51AM ; [facility] Last pap smear date 09/30/2022 10/03/2023 Last Documented On 4 8:51AM ; [facility] Previous colposcopy 09/28/2020 ; 08/21/18; 06/04/12 10/03/2023 Last Documented On 4 8:51AM ; [facility] History of diagnostic fibero ptic colonoscopy 01/09/2020 [facility] repeat 5 years 10/03/2023 Last Documented On 4 8:51AM ; [facility] Last mammogram date: 10/26/2021 WNL per p t at [facility] 09/30/2022 Last Documented On 3 8:53AM ; [facility] Primary Care Provider: Montez Beebe works under Dr. Ellis 09/30/2022 Last Documented On 3 8:53AM ; [facility] Status post tubal ligation 1998 with c/s TK 09/24/2021 Last Documented On 2 8:44AM ; [facility] Result: abnormal LGSIL 09/28/2020 Last Documented On 1 3:49PM ; [facility] Diabetes managed by oral medication dx i n 201908/11/2020 Last Documented On 1 9:13AM ; [facility] A colonoscopy was performed 01/09/2008/11 Last Documented On 1 9:13AM ; [facility] LMP: 01/22/2019 07/19/2019 Last Documented On 0 9:07AM ; [facility] Recent change in medical his tory Started from Yuniel Meza NP (at [facility]) Lexapro 10 mg started in Feb 2013 for anxiety and moodiness. Feels much better since taking it. She quit in summer of 2016 and doesn't see a difference without it 07/14/2017 Last Documented On 8 1:34PM ; [facility] Osteoarthritis in her low back Dx'd October 2012 05/29/2015 Last Documented On 6 9:50AM ; [facility] Result: normal 05/29/2015 Last Documented On 6 9:50AM ; [facility] Result: normal 05/29/2015 Last Documented On 6 9:50AM ; [facility] Previous history of abnormal Pap smear LGSIL on 05/28/2012 ~06/04/2012 colp/bx --- DEISY I 'at least' ~07/09/2012 LEEP cone with DEISY I only and clear margins ~12/03/2012 ASCUS but with neg HR HPV DNA ~04/02/2013 LGSIL pap ~10/01/2013 normal pap 05/16/2014 Last Documented On 5 11:13AM ; [facility] Sexually active 1 PARTNER 05/16/2014 Last Documented On 5 11:13AM ; [facility] History of Pap smear done 04/02/2013 Last Documented On 4 9:20AM ; [facility] History of anxiety disorder NOS 04/02/20 13 Last Documented On 3 11:35AM ; [facility] History of depression 04/02/2013 Last Documented On 3 11:35AM ; [facility] section at [facility] with Dr Maurer back in 1990 with the cord around the neck. Repeat section in 1998 after failed with tubal ligation aslo at [facility] with TK 03/07/2012 Last Documented On 2 5:10PM ; [facility] Elective breast augmentation surgery was done at [facility] with Dr Lundy in about 200503/07/2012 Last Documented On 2 5:10PM ; [facility] 2 03/07/2012 Last Documented On 2 5:10PM ; [facility] Para 2 03/07/2012 Last Documented On 2 5:10PM ; [facility] Family History Includes: Family History in patient's chart Description Last Updated Fraternal history of cancer lung cancer and copd- heavy smoker 10/03/2023 Last Documented On 4 8:51AM ; [facility] Daughter's history of asthma brother and daughter 10/03/2023 Last Documented On 4 8:51AM ; [facility] Family history of hepatic disorders pt h as fatty liver 10/03/2023 Last Documented On 4 8:51AM ; [facility] Fraternal history of asthma 10/03/2023 Last Documented On 4 8:51AM ; [facility] Fraternal history of diabetes mellitus 0 10/03/2023 Last Documented On 4 8:51AM ; [facility] Fraternal history of heart disease 10/02 Last Documented On 4 8:51AM ; [facility] Maternal history of breast cancer 2023 Last Documented On 4 8:51AM ; [facility] Maternal history of depression mom 10/02 Last Documented On 4 8:51AM ; [facility] Maternal history of stroke syndrome mom had a couple of strokes 10/03/2023 Last Documented On 4 8:51AM ; [facility] Sororal history of breast cancer mom and sister 10/03/2023 Last Documented On 4 8:51AM ; [facility] Sororal history of diabetes mellitus Last Documented On 4 8:51AM ; [facility] mom Dx lung cancer at 75 the n a breast ca at 79 (mets?) ( 08/2016 at 81) 07/17/2018 Last Documented On 9 8:55AM ; [facility] Fraternal history of family history of h eart disease BROTHERS 06/05/2018 Last Documented On 9 5:52PM ; [facility] Fraternal history of pure hypercholester olemia brothers 06/05/2018 Last Documented On 9 5:52PM ; [facility] Maternal history of family history of he art disease MOM 06/05/2018 Last Documented On 9 5:52PM ; [facility] Maternal history of pure hypercholestero lemia Mom 06/05/2018 Last Documented On 9 5:52PM ; [facility] Fraternal history of hypertension BROTHE R 07/14/2017 Last Documented On 8 1:34PM ; [facility] Maternal history of diabetes mellitus MOM, brothers, sisters, grandparents, uncles 07/14/2017 Last Documented On 8 1:34PM ; [facility] Maternal history of hypertension MOM 01/2018 Last Documented On 8 1:34PM ; [facility] Maternal history of malignant female rob ast neoplasm mother 07/14/2017 Last Documented On 8 1:34PM ; [facility] Family history of malignant female breas t neoplasm mother 06/10/2016 Last Documented On 7 9:31AM ; [facility] Sororal history of malignant female breast neoplasm Sister, dying at age 50 05/29/2015 Last Documented On 6 9:50AM ; [facility] Family history unchanged 04/02/2013 Last Documented On 3 11:35AM ; [facility] Family history of diabetes m ellitus MOM ~BROTHERS ~SISTERS ~GRANDPARENTS ~UNCLES 02/02/2012 Last Documented On 2 1:39PM ; [facility] Family history of hypercholesterolemia M om ~Brothers 02/02/2012 Last Documented On 2 1:39PM ; [facility] Family history of hypertension MOM ~BROT HER 02/02/2012 Last Documented On 2 1:39PM ; [facility] No family history of malignant neoplasm of the large intestine 02/02/2012 Last Documented On 2 1:39PM ; [facility] No family history of malignant neoplasm of the ovary 02/02/2012 Last Documented On 2 1:39PM ; [facility] No family history of uterine cancer 01/07 Last Documented On 2 1:39PM ; [facility] Family history of heart disease MOM ~BRO THERS 02/02/2012 Last Documented On 2 1:39PM ; [facility] Review of Systems Review of Systems not supported for this document type No Review of Systems Recorded Mental Status Description No anxiety Functional Status No Functional Status Recorded Physical Exam Physical Exam not supported for this document type No Physical Exam Recorded Allergies Includes: Active, inactive, and resolved Allergies Substance Type Reaction Onset Date Resolved Date Statu s Vicodin Allergy Nausea, Vomiting , Diarrhea / Diarrheal disorder 04/02/2013 Active Last Documented On 4 8:16AM ; [facility] Darvocet-N 100 Allergy 02/02/2012 Acti ve Last Documented On 4 8:16AM ; [facility] Cymbalta Allergy Hives / Urticaria 09/30/2022 A ctive Last Documented On 4 8:16AM ; [facility] Encounters Includes: Encounters from 07/02/2023 through 07/02/2024 Encounter Provider Location Date Check-In Time Check-Out Time Diagnosis WELL WOMAN - ESTABLISHED PT SHEA MAURER MD [facility] 10/03/19 24 7:59AM 8:55AM Breast Fibrocystic Disease,Screen ing Malig. Neoplasm Rectum,Normal Female Exam Insurance Includes: Active Insurance Policies Plan Name Member ID Group # Subscriber Relationship Effect kika Dates 1 - [facility] [id number] JIMMY LARSON Self 2 - [facility] [id number] JIMMY LARSON Self Clinical Notes Includes: Signed Clinical Notes starting from 05/27/2022 * Progress note Date Encounter Last Documented by 10/03/2023 WELL WOMAN - ESTABLISHED PT Last documented on 10/03/2023; 8:51 AM, SHEA MAURER MD; [facility] Active Problems & Conditions - CERVICAL (HPV) [...] normal pap. Primary Care Provider: Montez Pruitt LIFE ENRICHMENT MANAGER - works under Dr. Ellis Reported: Recent change in medical history Started from Yuniel Meza NP (at [facility]) Lexapro 10 mg started in Feb 2013 for anxiety and moodiness. Feels much better since taking it. She quit in summer of 2016 and doesn't see a difference without it. LMP: 01/22/2019, Last pap smear date 09/30/2022 result: normal, Last mammogram date: 10/26/2021 WNL per pt at [facility], result: normal, and status post tubal ligation 1998 with c/s TK. Medical: Diabetes managed by oral medication dx in 2019. Surgical / Procedural: Surgical / procedural history Breast augmentation 2005; right breast biopsy October 2012 -- [facility]-- benign; EMB 06/14/19. Previous colposcopy 09/28/2020; 08/21/18; 06/04/12. Tests: A colonoscopy was performed 01/09/20. : 2, para 2, and history of the : section at [facility] with Dr Libertad dominguez in 1990 with the cord around the neck. Repeat section in 1998 after failed with tubal ligation aslo at [facility] with TK. Sexual: Sexually active 1 PARTNER. Other: Diagnostic fiberoptic colonoscopy 01/09/2020 [facility] repeat 5 years. Screening mammogram was performed 2022 with f/u in 6 months than f/u again in 6 months- due in 10/2023 [facility] Diagnoses: Osteoarthritis in her low back Dx'd October 2012. Depression Anxiety disorder NOS Procedural: - Pap smear done 04/02/2013 Surgical: - Elective breast augmentation surgery was done at [facility] with Dr Lundy in about 2005 - Cholecystectomy - Tubal [...] to sign release to get mammograms from [facility] from october and apr 2023; return in one year for WWE (30 min)> EndCited - Follow-up visit 1 year or as needed She will let us know if she has other problems in the meantime. Practice Management Use of tobacco assessment performed.
--- OUTSIDE RECORDS SUMMARY | 2024-07-02 07:19 | XMS_ITS | Clinical Summary ---
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 Pap Smear (ASC-US) 07/31/2012 SHEA REGALADO MD Active Last Documented On 3 8:27AM ; [facility] CERVICAL (HPV) DNA POS 06/04/2012 SHEA Suero MD Active Last Documented On 3 9:02AM ; [facility] Plan of Treatment Pending Tests Order Diagnosis Results Due Ordering P rovider Lab Pap with HPV 10/05/23 SHEA BUNDY MD Last Documented On 4 8:55AM ; [facility] Assessments Includes: Assessments from this encounter Findings - Cervical dysplasia--mild (DEISY I) - Last Documented On 10/13/2020 12:15PM ; [facility] Medical Equipment - Implanted Devices Includes: Current Devices No Medical Equipment Recorded Medications Includes: Medications discussed during this encounter and other current Medications Current Medications (continue as prescribed) Advanced Probiotic Oral Capsule 09/30/2022 Provider: Diagnosis: Last Documented On 09/30/2022 8:15AM By Conner Andrew Carlos ; [facility] Osteo Bi-Flex Adv Joint Shield Oral Tablet 09/30/2022 Provider: Diagnosis: Last Documented On 09/30/2022 8:15AM By Conner Andrew Carlos ; [facility] Amitriptyline HCl 75 MG Oral Tablet 09/02/2022 Provi olrena: MONTEZ PRUITT RN Diagnosis: Last Documented On 09/30/2022 8:14AM By Conner Andrew Carlos ; [facility] Ozempic (0.25 or 0.5 MG/DOSE ) 2 MG/1.5ML Subcutaneous Solution Pen-injector 07/29/2022 Provider: YOJANA PRUITT RN Diagnosis: Last Documented On 09/30/2022 8:14AM By Conner Andrew Carlos ; [facility] Dicyclomine HCl 10 MG Oral Capsule 05/20/2022 Provid er: MONTEZ PRUITT RN Diagnosis: Last Documented On 09/30/2022 8:14AM By Conner Andrew Carlos ; [facility] Ibuprofen 800 MG Oral Tablet 12/14/2021 Provider: MONTEZ PRUITT RN Diagnosis: Last Documented On 09/30/2022 8:14AM By Conner Andrew Carlos ; [facility] Omeprazole 20 MG Oral Tablet Delayed Release 0 Provider: Diagnosis: Last Documented On 0 4:13PM By LOREN ALFONSO Carlos ; [facility] Medications Administered Includes: Administered Medications from this encounter No Administered Medications Recorded Results Includes: Results discussed during this encounter No Results Recorded For Specified Dates History of Present Illness Includes: History of Present Illness from this encounter IRAM LARSON is a 54 year old female. - Patient denies any problems from the procedure. - Previous colposcopy on 09/28/2020. 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 No lesions had been seen externally to biopsy. - Patient tolerated procedure well - Cervical Pap smear: low grade squamous intraepithelial lesion on pap from 08/11/2020 This visit was conducted with use of interactive audio and video telecommunication system with real time communication between the patient and the provider. I have verified this is the correct patient. Patient understands my recommendations will be made based on reported data. There is a risk that this information is not reported accurately, and that the telemedicine audio or data feed may be incomplete. All laws concerning confidentiality apply to telemedicine. Patient consent for the virtual visit was obtained on Patient location: Home Provider location: [facility] This encounter was performed using audio only. I spent 10 minutes in direct communication with the patient : greater than 50 percent of the time was spent in discussion and counseling. Francesca MEZA initiated and was present throughout the visit Social History Description Last Updated Marital history 06/10/2016 Last Documented On 1 10:47AM ; [facility] Sexually active with 1 partners in the l ast year 06/10/2016 Last Documented On 1 10:47AM ; [facility] Alcohol use Occasionally 03/07/2012 Last Documented On 1 10:47AM ; [facility] Non-smoker 03/07/2012 Last Documented On 1 10:47AM ; [facility] Sexually active 03/07/2012 Last Documented On 1 10:47AM ; [facility] Smoking Status Unknown Procedures and Surgical History Includes: Procedures from this encounter Procedures Code Diagnosis Performing Provider Service L ocation Service Date Clinical summary provided to patient Last Documented On 1 12:13PM ; [facility] Surgical History Last Updated Surgical / procedural histor y Breast augmentation 2005; right breast biopsy October 2012 -- [facility]-- benign; 09/30/2022 Last Documented On 1 10:47AM ; [facility] History of tubal ligation 1998 1 Last Documented On 1 10:47AM ; [facility] Previous colposcopy 08/21/2018 ; 06/04/12 06/04/2019 Last Documented On 1 10:47AM ; [facility] History of Loop electrode ex cision of cervix (LEEP) 07/09/12. DEISY-1 WITH HPV EFFECT 12/03/2012 Last Documented On 1 10:47AM ; [facility] History of cholecystectomy 03/07/2012 Last Documented On 1 10:47AM ; [facility] Medical History Includes: Medical History addressed during this encounter Description Last Updated History of screening mammogram was perfo rmed 07/16/2020 --Normal 10/03/2023 Last Documented On 1 10:47AM ; [facility] Last pap smear date 08/11/2020 10/03/2023 Last Documented On 1 10:47AM ; [facility] History of colonoscopy fiberoptic was pe rformed 01/09/2020 10/03/2023 Last Documented On 1 10:47AM ; [facility] Last mammogram date: 07/16/2020 WNL per p t at [facility] 09/30/2022 Last Documented On 1 10:47AM ; [facility] Status post tubal ligation 199809/25/19 Last Documented On 1 10:47AM ; [facility] Result: abnormal LGSIL 09/28/2020 Last Documented On 1 10:47AM ; [facility] Diabetes managed by oral medication dx i n 201908/11/2020 Last Documented On 1 10:47AM ; [facility] A colonoscopy was performed 01/09/2008/11 Last Documented On 1 10:47AM ; [facility] LMP: 01/22/2019 07/19/2019 Last Documented On 1 10:47AM ; [facility] Osteoarthritis in her low back Dx'd October 2012 05/29/2015 Last Documented On 1 10:47AM ; [facility] Result: normal 05/29/2015 Last Documented On 1 10:47AM ; [facility] Result: normal 05/29/2015 Last Documented On 1 10:47AM ; [facility] Previous history of abnormal Pap smear LGSIL on 05/28/2012 ~06/04/2012 colp/bx --- DEISY I 'at least' ~07/09/2012 LEEP cone with DEISY I only and clear margins ~12/03/2012 ASCUS but with neg HR HPV DNA ~04/02/2013 LGSIL pap ~10/01/2013 normal pap 05/16/2014 Last Documented On 1 10:47AM ; [facility] Sexually active 1 PARTNER 05/16/2014 Last Documented On 1 10:47AM ; [facility] History of Pap smear done 04/02/2013 Last Documented On 1 10:47AM ; [facility] History of anxiety disorder NOS 04/02/20 13 Last Documented On 1 10:47AM ; [facility] History of depression 04/02/2013 Last Documented On 1 10:47AM ; [facility] section at [facility] with Dr Maurer back in 1990 with the cord around the neck. Repeat section in 1998 after failed with tubal ligation aslo at [facility] with TK 03/07/2012 Last Documented On 1 10:47AM ; [facility] Elective breast augmentation surgery was done at [facility] with Dr Lundy in about 200503/07/2012 Last Documented On 1 10:47AM ; [facility] 2 03/07/2012 Last Documented On 1 10:47AM ; [facility] Para 2 03/07/2012 Last Documented On 1 10:47AM ; [facility] Family History Includes: Family History addressed during this encounter Description Last Updated mom Dx lung cancer at 75 the n a breast ca at 80 (mets?) ( 08/2016 at 81) 07/17/2018 Last Documented On 1 10:47AM ; [facility] Fraternal history of family history of h eart disease BROTHERS 06/05/2018 Last Documented On 1 10:47AM ; [facility] Fraternal history of pure hypercholester olemia brothers 06/05/2018 Last Documented On 1 10:47AM ; [facility] Maternal history of family history of he art disease MOM 06/05/2018 Last Documented On 1 10:47AM ; [facility] Maternal history of pure hypercholestero lemia Mom 06/05/2018 Last Documented On 1 10:47AM ; [facility] Fraternal history of hypertension BROTHE R 07/14/2017 Last Documented On 1 10:47AM ; [facility] Maternal history of diabetes mellitus MOM, brothers, sisters, grandparents, uncles 07/14/2017 Last Documented On 1 10:47AM ; [facility] Maternal history of hypertension MOM 01/2018 Last Documented On 1 10:47AM ; [facility] Maternal history of malignant female rob ast neoplasm mother 07/14/2017 Last Documented On 1 10:47AM ; [facility] Family history of malignant female breas t neoplasm mother 06/10/2016 Last Documented On 1 10:47AM ; [facility] Sororal history of malignant female breast neoplasm Sister, dying at age 50 05/29/2015 Last Documented On 1 10:47AM ; [facility] Family history unchanged 04/02/2013 Last Documented On 1 10:47AM ; [facility] Family history of diabetes m ellitus MOM ~BROTHERS ~SISTERS ~GRANDPARENTS ~UNCLES 02/02/2012 Last Documented On 1 10:47AM ; [facility] Family history of hypercholesterolemia M om ~Brothers 02/02/2012 Last Documented On 1 10:47AM ; [facility] Family history of hypertension MOM ~BROT HER 02/02/2012 Last Documented On 1 10:47AM ; [facility] Family history of heart disease MOM ~BRO THERS 02/02/2012 Last Documented On 1 10:47AM ; [facility] Review of Systems Includes: Review of Systems [...] Active Last Documented On 4 8:16AM ; [facility] Darvocet-N 100 Allergy 02/02/2012 Acti ve Last Documented On 4 8:16AM ; [facility] Cymbalta Allergy Hives / Urticaria 09/30/2022 A ctive Last Documented On 4 8:16AM ; [facility] Encounters Encounter Provider Location Date Check-In Time Check-Out Time Diagnosis [facility] SHEA MAURER MD 10/13/2020 10:46AM 11:59PM Cervical Dysplasia--mil d (Deisy I) Insurance Includes: Active Insurance Policies Plan Name Member ID Group # Subscriber Relationship Effect kika Dates 1 - [facility] [id number] JIMMY LARSON Self 2 - [facility] [id number] JIMMY LARSON [facility] Clinical Notes Includes: Clinical Notes from this encounter No Clinical Notes Recorded
--- OUTSIDE RECORDS SUMMARY | 2024-07-02 07:19 | XMS_ITS | Clinical Summary ---
Author Organization [facility] Address [address] [place] [address] Phone Care Team Providers Care Industrial Technology Education Teacher Name Role Phone LIBERTAD THOMAS, SHEA Marshall Unavailable [phone] NEGRITO THOMSA, TITA Arizmendi Primary Care Provider [phone] Reason for Visit and Chief Complaint The Chief Complaint is: WWE. No concerns today Problems Includes: Problems addressed during this encounter and other active Problems All Visits Onset Date Resolved Date Provider Condition S tatus Urethral Urethrocele 06/05/2018 SHEA DOMINGUEZ MD Active Last Documented On 06/05/2018 5:49PM ; [facility] Note: Unchanged - just with pt cough. Pap Smear (ASC-US) 07/31/2012 SHEA REGALADO MD Active Last Documented On 3 8:27AM ; [facility] CERVICAL (HPV) DNA POS 06/04/2012 SHEA Suero MD Active Last Documented On 3 9:02AM ; [facility] Plan of Treatment - Follow-up visit 1 year or as needed - Last Documented On 09/30/2022 8:53AM ; [facility] She will let us know if she has other problems in the meantime. - Last Documented On 09/30/2022 8:53AM ; [facility] Pending Tests Order Diagnosis Results Due Ordering P rovider Lab Pap with HPV 10/05/23 SHEA BUNDY MD Last Documented On 4 8:55AM ; [facility] Instructions to patient Instructions for patient : B reast Self Exam discussed Last Documented On 3 8:38AM ; [facility] Education and Decision Aids were provided during visit for: STD screening offered and de clined Last Documented On 3 8:38AM ; [facility] Bone Mineral Density Screeni ng guidelines reviewed Last Documented On 3 8:38AM ; [facility] Patient Education: Daily clayton cium and vitamin D Last Documented On 3 8:38AM ; [facility] Patient Education: weight be aring exercise Last Documented On 3 8:38AM ; [facility] Colonoscopy screening guidel ashwini discussed Last Documented On 3 8:38AM ; [facility] Assessments Includes: Assessments from this encounter Findings - Fibrocystic disease of breast - Last Documented On 09/30/2022 8:53AM ; [facility] - NORMAL FEMALE EXAM - Last Documented On 09/30/2022 8:53AM ; [facility] - Screening Malig. Neoplasm Rectum - Last Documented On 09/30/2022 8:53AM ; [facility] Instructions Includes: Instructions from this encounter Instructions to patient Instructions for patient : B reast Self Exam discussed Last Documented On 3 8:38AM ; [facility] Education and Decision Aids were provided during visit for: STD screening offered and de clined Last Documented On 3 8:38AM ; [facility] Bone Mineral Density Screeni ng guidelines reviewed Last Documented On 3 8:38AM ; [facility] Patient Education: Daily clayton cium and vitamin D Last Documented On 3 8:38AM ; [facility] Patient Education: weight be aring exercise Last Documented On 3 8:38AM ; [facility] Colonoscopy screening guidel sahwini discussed Last Documented On 3 8:38AM ; [facility] Medical Equipment - Implanted Devices Includes: Current Devices No Medical Equipment Recorded Medications Includes: Medications discussed during this encounter and other current Medications Discontinued / Stopped on this date on 08/11/2020 metFORMIN HCl 500 MG Oral Tablet Provider : Diagnosis: Last Documented On 09/30/2022 8:14AM By Conner GILBERT ; [facility] Gabapentin 300 MG Oral Capsule Provider: Diagnosis: Last Documented On 09/30/2022 8:14AM By Conner Andrew Carlos ; [facility] CeleXA 20MG Oral Tablet Provider: Diagnosis: Last Documented On 09/30/2022 8:15AM By Conner Andrew Carlos ; [facility] Calcium 600MG Oral Tablet Provider: Diagnosis: Last Documented On 09/30/2022 8:15AM By [facility]oriah [facility] ; [facility] Current Medications (continue as prescribed) Advanced Probiotic Oral Capsule 09/30/2022 Provider: Diagnosis: Last Documented On 09/30/2022 8:15AM By Conner Andrew Carlos ; [facility] Osteo Bi-Flex Adv Joint Shield Oral Tablet 09/30/2022 Provider: Diagnosis: Last Documented On 09/30/2022 8:15AM By Conner [facility] ; [facility] Amitriptyline HCl 75 MG Oral Tablet 09/02/2022 Provi lorena: MONTEZ PRUITT RN Diagnosis: Last Documented On 09/30/2022 8:14AM By Conner Andrew Carlos ; [facility] Ozempic (0.25 or 0.5 MG/DOSE ) 2 MG/1.5ML Subcutaneous Solution Pen-injector 07/29/2022 Provider: YOJANA PRUITT RN Diagnosis: Last Documented On 09/30/2022 8:14AM By Conner Andrew Carlos ; [facility] Dicyclomine HCl 10 MG Oral Capsule 05/20/2022 Provid er: MONTEZ PRUITT RN Diagnosis: Last Documented On 09/30/2022 8:14AM By Conner Andrew Carlos ; [facility] Ibuprofen 800 MG Oral Tablet 12/14/2021 Provider: MONTEZ PRUITT RN Diagnosis: Last Documented On 09/30/2022 8:14AM By Conner Andrew Carlos ; [facility] Omeprazole 20 MG Oral Tablet Delayed Release 0 Provider: Diagnosis: Last Documented On 0 4:13PM By LOREN ALFONSO Carlos ; [facility] Medications Administered Includes: Administered Medications from this encounter No Administered Medications Recorded Vital Signs Includes: Vital Signs from this encounter Vital Name 09/30/2022 08:18A Blood Pressure Sitting L 126/86 BP Cuff Size Regular Temp-Temporal 98.3 Height (in) 63.25 Weight (lb) 156 Body Mass Index 27.4 Body Surface Area 1.7 Last Documented: On 09/30/2022 8:19AM ; [facility] Results Includes: Results discussed during this encounter No Results Recorded For Specified Dates History of Present Illness Includes: History of Present Illness from this encounter IRAM LARSON is a 56 year old female. - Allergy list reviewed - Medication list reviewed Social History Description Last Updated Smoking status : Never smoker 07/19/2019 Last Documented On 3 8:05AM ; [facility] Not using drugs 07/14/2017 Last Documented On 3 8:05AM ; [facility] Exercising regularly 06/10/2016 Last Documented On 3 8:05AM ; [facility] Marital history 06/10/2016 Last Documented On 3 8:05AM ; [facility] Sexually active with 1 partners in the l ast year 06/10/2016 Last Documented On 3 8:05AM ; [facility] Social history unchanged 04/02/2013 Last Documented On 3 8:05AM ; [facility] Alcohol use Occasionally 03/07/2012 Last Documented On 3 8:05AM ; [facility] Sexually active 03/07/2012 Last Documented On 3 8:05AM ; [facility] Procedures and Surgical History Includes: Procedures from this encounter Procedures Code Diagnosis Performing Provider Service L ocation Service Date elective augmentation surgery of both breasts Last Documented On 3 8:39AM ; [facility] use of tobacco assessment performed 1000F Last Documented On 3 8:06AM ; [facility] Clinical summary provided to patient Last Documented On 3 8:38AM ; [facility] cervical Pap smear 35990 Last Documented On 3 8:38AM ; [facility] history of cervical Pap smear 09/24/2021 28832 Last Documented On 3 8:06AM ; [facility] FIT Test-Fecal Occult negative 66019 Last Documented On 3 8:38AM ; [facility] Surgical History Last Updated Surgical / procedural histor y Breast augmentation 2005; right breast biopsy October 2012 -- [facility]-- benign; EMB 06/14/19 09/30/2022 Last Documented On 3 8:53AM ; [facility] History of tubal ligation 1998 1 Last Documented On 3 8:05AM ; [facility] Previous colposcopy 08/21/2018 ; 06/04/12 06/04/2019 Last Documented On 3 8:05AM ; [facility] History of Loop electrode ex cision of cervix (LEEP) 07/09/12. DEISY-1 WITH HPV EFFECT 12/03/2012 Last Documented On 3 8:05AM ; [facility] History of cholecystectomy 03/07/2012 Last Documented On 3 8:05AM ; [facility] Medical History Includes: Medical History addressed during this encounter Description Last Updated History of colonoscopy fiber optic was performed 01/09/2020 [facility] 10/03/2023 Last Documented On 3 8:05AM ; [facility] Last mammogram date: 10/26/2021 WNL per p t at [facility] 09/30/2022 Last Documented On 3 8:53AM ; [facility] History of screening mammogram was perfo rmed 10/26/2021 --Normal 09/30/2022 Last Documented On 3 8:53AM ; [facility] Primary Care Provider: Montez Beebe works under Dr. Ellis 09/30/2022 Last Documented On 3 8:53AM ; [facility] Last pap smear date 09/24/2021 09/30/2022 Last Documented On 3 8:53AM ; [facility] Status post tubal ligation 1998 with c/s TK 09/24/2021 Last Documented On 3 8:05AM ; [facility] Diabetes managed by oral medication dx i n 201908/11/2020 Last Documented On 3 8:05AM ; [facility] A colonoscopy was performed 01/09/2008/11 Last Documented On 3 8:05AM ; [facility] LMP: 01/22/2019 07/19/2019 Last Documented On 3 8:05AM ; [facility] Recent change in medical his tory Started from Yuniel Meza NP (at [facility]) Lexapro 10 mg started in Feb 2013 for anxiety and moodiness. Feels much better since taking it. She quit in summer and doesn't see a difference without it 07/14/2017 Last Documented On 3 8:05AM ; [facility] Osteoarthritis in her low back Dx'd October 2012 05/29/2015 Last Documented On 3 8:05AM ; [facility] Result: normal 05/29/2015 Last Documented On 3 8:05AM ; [facility] Result: normal 05/29/2015 Last Documented On 3 8:05AM ; [facility] Previous history of abnormal Pap smear LGSIL on 05/28/2012 ~06/04/2012 colp/bx --- DEISY I 'at least' ~07/09/2012 LEEP cone with DEISY I only and clear margins ~12/03/2012 ASCUS but with neg HR HPV DNA ~04/02/2013 LGSIL pap ~10/01/2013 normal pap 05/16/2014 Last Documented On 3 8:05AM ; [facility] Sexually active 1 PARTNER 05/16/2014 Last Documented On 3 8:05AM ; [facility] History of anxiety disorder NOS 04/02/20 13 Last Documented On 3 8:05AM ; [facility] History of depression 04/02/2013 Last Documented On 3 8:05AM ; [facility] section at [facility] with Dr Maurer back in 1990 with the cord around the neck. Repeat section in 1998 after failed with tubal ligation aslo at [facility] with TK 03/07/2012 Last Documented On 3 8:05AM ; [facility] Elective breast augmentation surgery was done at [facility] with Dr Lundy in about 200503/07/2012 Last Documented On 3 8:05AM ; [facility] 2 03/07/2012 Last Documented On 3 8:05AM ; [facility] Para 2 03/07/2012 Last Documented On 3 8:05AM ; [facility] Family History Includes: Family History addressed during this encounter Description Last Updated mom Dx lung cancer at 75 the n a breast ca at 80 (mets?) ( 08/2016 at 82) 07/17/2018 Last Documented On 3 8:05AM ; [facility] Fraternal history of family history of h eart disease BROTHERS 06/05/2018 Last Documented On 3 8:05AM ; [facility] Fraternal history of pure hypercholester olemia brothers 06/05/2018 Last Documented On 3 8:05AM ; [facility] Maternal history of family history of he art disease MOM 06/05/2018 Last Documented On 3 8:05AM ; [facility] Maternal history of pure hypercholestero lemia Mom 06/05/2018 Last Documented On 3 8:05AM ; [facility] Fraternal history of hypertension BROTHE R 07/14/2017 Last Documented On 3 8:05AM ; [facility] Maternal history of diabetes mellitus MOM, brothers, sisters, grandparents, uncles 07/14/2017 Last Documented On 3 8:05AM ; [facility] Maternal history of hypertension MOM 01/2018 Last Documented On 3 8:05AM ; [facility] Maternal history of malignant female rob ast neoplasm mother 07/14/2017 Last Documented On 3 8:05AM ; [facility] Sororal history of malignant female breast neoplasm Sister, dying at age 50 05/29/2015 Last Documented On 3 8:05AM ; [facility] Family history unchanged 04/02/2013 Last Documented On 3 8:05AM ; [facility] Family history of diabetes m ellitus MOM ~BROTHERS ~SISTERS ~GRANDPARENTS ~UNCLES 02/02/2012 Last Documented On 3 8:05AM ; [facility] Family history of hypercholesterolemia M om ~Brothers 02/02/2012 Last Documented On 3 8:05AM ; [facility] Family history of hypertension MOM ~BROT HER 02/02/2012 Last Documented On 3 8:05AM ; [facility] Family history of heart disease MOM ~BRO THERS 02/02/2012 Last Documented On 3 8:05AM ; [facility] Review of Systems Includes: Review [...] No arthralgias and no localized joint swelling. Mental Status Includes: Mental [...] Active Last Documented On 4 8:16AM ; [facility] Darvocet-N 100 Allergy 02/02/2012 Acti ve Last Documented On 4 8:16AM ; [facility] Cymbalta Allergy Hives / Urticaria 09/30/2022 A ctive Last Documented On 4 8:16AM ; [facility] Encounters Encounter Provider Location Date Check-In Time Check-Out Time Diagnosis [facility] - ESTABLISHED PT SHEA MAURER MD [facility] 10/01/19 23 8:04AM 8:55AM Breast Fibrocystic Disease,Screen ing Malig. Neoplasm Rectum,Normal Female Exam Insurance Includes: Active Insurance Policies Plan Name Member ID Group # Subscriber Relationship Effect kika Dates 1 - [facility] [id number] JIMMY LARSON Self 2 - [facility] [id number] JIMMY LARSON Self Clinical Notes Includes: Clinical Notes from this encounter * Progress note Date Encounter Last Documented by 09/30/2022 WE[facility] WOMAN - ESTABLISHED PT Last documented on 09/30/2022; 8:53 AM, SHEA MAURER MD; [facility] Active Problems & Conditions - CERVICAL (HPV) DNA POS - Pap Smear (ASC-US) - Urethral Urethrocele - just with pt cough. Chief Complaint The Chief Complaint is: WWE. No concerns today. History of Present Illness JIMMY LARSON is a 56 year old female. - Allergy list reviewed [...] Subcutaneous Solution Pen-injector 42 days, 0 refills Past Medical/Surgical History Other: Abnormal Pap smear LGSIL on 05/28/2012 06/04/2012 colp/bx --- DEISY I 'at least' 07/09/2012 LEEP cone with DEISY I only and clear margins 12/03/2012 ASCUS but with neg HR HPV DNA 04/02/2013 LGSIL pap 10/01/2013 normal pap. Primary Care Provider: Montez Pruitt FLIGHT ATTENDANT - works under Dr. Ellis Reported: Recent change in medical history Started from Yuniel Meza FLIGHT ATTENDANT (at [facility]) Lexapro 10 mg started in Feb 2013 for anxiety and moodiness. Feels much better since taking it. She quit in summer of 2016 and doesn't see a difference without it. LMP: 01/22/2019, Last pap smear date 09/24/2021 result: normal, Last mammogram date: 10/26/2021 WNL per pt at [facility], result: normal, and status post tubal ligation 1998 with c/s TK. Medical: Diabetes managed by oral medication dx in 2019. Surgical / Procedural: Surgical / procedural history Breast augmentation 2005; right breast biopsy October 2012 -- [facility]-- benign; EMB 06/14/19. Previous colposcopy 08/21/2018; 06/04/12. Tests: A colonoscopy was performed 01/09/20. : 2, para 2, and history of the : section at [facility] with Dr Libertad dominguez in 1990 with the cord around the neck. Repeat section in 1998 after failed with tubal ligation aslo at [facility] with TK. Sexual: Sexually active 1 PARTNER. Other: Colonoscopy fiberoptic was performed 01/09/2020 [facility]. Screening mammogram was performed 10/26/2021 --Normal Diagnoses: Osteoarthritis in her low back Dx'd October 2012. Depression Anxiety disorder NOS Surgical: - Elective breast augmentation surgery was done at [facility] with Dr Lundy in about 2005 - [...] , Diarrhea / Diarrheal disorder Family History Heart disease MOM BROTHERS Family history unchanged Systemic hypertension MOM BROTHER Pure hypercholesterolemia Mom Brothers Diabetes mellitus MOM BROTHERS SISTERS GRANDPARENTS UNCLES Maternal: Heart disease MOM Systemic hypertension MOM Pure hypercholesterolemia Mom Diabetes mellitus MOM, brothers, sisters, grandparents, uncles Malignant female breast neoplasm mother Mom Dx lung cancer at 75 then a breast ca at 80 (mets?) ( 08/2016 at 82) Fraternal: Heart disease BROTHERS Systemic hypertension BROTHER Pure hypercholesterolemia brothers Sororal: Malignant female breast neoplasm Sister, dying at age 50 Review Of Systems Gastrointestinal: No nausea, no [...] No arthralgias and no localized joint swelling. Physical Findings - Vitals taken 09/30/2022 08:18 am BP-Sitting L 126/86 mmHg BP Cuff Size Regular Temp-Temporal 98.3 F Height 63.25 in Weight 156 lbs Body Mass Index 27.4 kg/m2 Body Surface Area 1.7 m2 Standard Measurements: - Patient was not observed to be obese. General Appearance: - Well developed. - Well nourished. - In no acute distress. Neck: Thyroid: - Showed no abnormalities. Lymph Nodes: - Supraclavicular lymph nodes were not enlarged. - Axillary lymph nodes were not enlarged. Breasts: General/bilateral: - Implants were found in both breasts. - Diffuse fibrous tissue in the breast(s). - Diffuse fibrous tissue was found in both breasts. - No capsular contracture of the breast implant. Right Breast: - Nipple was normal. - [...] - Not enlarged. - Not tender. Uterine Adnexae: - Uterine adnexa was not tender. Rectovaginal: - Tissue was normal. Rectal: - Exam: normal. Rectum: - Normal. - Had no mass. Tests Laboratory-based Chemistry: Fecal Analysis: FIT Test-Fecal Occult negative. Pathology: Cytology: Cervical Pap smear. Assessment - Fibrocystic disease of breast - NORMAL FEMALE EXAM - Screening Malig. Neoplasm Rectum Previous Tests Pathology: Cytology: Cervical Pap smear 09/24/2021. Therapy - Elective augmentation surgery of both breasts. - Clinical summary provided to patient. Counseling/Education - Instructions for patient: Breast Self Exam discussed - Patient Education: Daily calcium and vitamin D - Patient Education: weight bearing exercise - Colonoscopy screening guidelines discussed - STD screening offered and declined - Bone Mineral Density Screening guidelines reviewed Plan StartCited - Other Follow-up return in one year for WWE (30 min). EndCited - Follow-up visit 1 year or as needed She will let us know if she has other problems in the meantime. Practice Management Use of tobacco assessment performed.
== END 2024-07-02 07:11 | disposition home or self-care (01) ==
PROVIDERS: PCP Registered Nurse; Visit Provider Nurse Practitioner
DX: R10.32 Left lower quadrant pain (principal); K59.00 Constipation, unspecified; D25.9 Leiomyoma of uterus, unspecified
CPT/HCPCS: 74177; Q9967